=== PATIENT | male | born 1955 | race Caucasian/White ===

== ENCOUNTER 2023-10-03 15:37 | Emergency (ER) | payer MEDICARE, SELFPAY ==
[2023-10-03 15:46] VITALS: BP 102/79; PULSE 87; RESP 14; TEMP 36.8; O2SAT 95; BMI 26.6
--- NOTE | 2023-10-03 16:03 | CRLHL7_ITS ---
For Patients: As a result of the Cures Act, medical imaging exams and procedure reports are released immediately into your electronic medical record. You may view this report before your referring provider. If you have questions, please contact your health care provider. Indication: Laceration. Possible metal in hand. Technique: Three views of the left hand. Comparison: None. Findings: There is a 4 mm metallic foreign body in the palmar soft tissues of the thenar eminence where there is also soft tissue swelling. There is a linear 5 mm foreign body seen over the dorsal soft tissues near the heads of the metacarpals only on the lateral view which could be external to the patient. No evidence of acute fracture or dislocation. Degenerative changes at the MCP joint of the thumb and at the interphalangeal joints, most severe at the D IP joint of the index finger. Impression: There is a 4 mm metallic body in the palmar soft tissues of the thenar eminence. A linear 5 mm foreign body over the dorsal soft tissues of the hand may be external to the patient. Clinical correlation is recommended. Dictated by Kayce Malave MD @ 10/03/2023 4:56:25 PM (Electronically Signed)
--- OUTSIDE RECORDS SUMMARY | 2023-10-03 16:51 | XMS_ITS | Continuity of Care Document ---
Author Name [facility] Organization [facility] Care Team Providers Care Customer Sales Representative Name Role Phone [facility] Unavailable Unavailable Problems Combined list of problems from Department of Defense and Veterans Affairs facilities. It does not include entries that were removed or entered in error. Problem Status Onset Date Problem Type Date of Resolution Comments Source Benign prostatic hyperplasia Active Condition [facility] Bilateral hearing loss Active Condition [facility] Congestive heart failure Active Condition Feb 01, 2021 Entered By: NABIL DICKSON Comment: EF 35% 2016 --> 40-45% 04/2019, G1DD; BODY BUILDER was discussed by Dr. NashApr 2021 Entered By: NABIL DICKSON Comment: 45-50% 2021 scanned to vista imaging [facility] Erectile Dysfunction ([facility] [id number]) Active Condition [facility] GERD - Gastro-Esophageal Reflux Disease ([facility] [id number]) Active Condition [facility] HTN - Hypertension ([facility] [id number]) Active Condition [facility] Hyperlipidemia ([facility] [id number]) Active Condition [facility] Kidney stone Active Condition Apr 05, 2020 Entered By: NABIL DICKSON Comment: <2mm [facility] Knee pain Active Condition Apr 05 Entered By: NABIL DICKSON Comment: per prev notes - medial mensicus tear [facility] Left bundle branch block Active Condition Apr 05, 2020 Entered By: NABIL DICKSON Comment: CT A with calcium 0 [facility] Past History Active Condition Apr 05, 2020 Entered By: NABIL DICKSON Comment: Medical - HSV genital w occ flares; glaucomaApr 05, 2020 Entered By: NABIL DICKSON Comment: Social - smoker 1pk/wkNov 2020 Entered By: NABIL DICKSON Comment: Mom-breast cancer, father-prostat e cancer, brother - carcoidosis, son - dystonia, daughter albinoism [facility] Polyp Colon ([facility] [id number]) Active Condition Apr 05, 2020 Entered By: NABIL DICKSON Comment: TA 2016 multiple 3yr; 10/2019 2TA; rpt 5yr [facility] Restless legs Active Condition [facility] Sleep apnea Active Condition Jul 26, 2021 Entered By: NABIL DICKSON Comment: Completed TOD surgery; didn't tolerate cpap [facility] Spinal stenosis of lumbar region Active Condition [facility] Diagnosis: ICD-10-CM Z13.6 Encounter for screening for cardiovascular disorders Active Diagnosis [facility] Diagnosis: ICD-10-CM N40.0 Benign prostatic hyperplasia without lower urinry tract symp Active Diagnosis [facility] Diagnosis: ICD-10-CM Z13.9 Encounter for screening, unspecified Active Diagnosis [facility] Diagnosis: ICD-10-CM 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 Medication Details Route Status Patient Instructions Prescription Expires Prescription Number Last Dispense Date Ordering Provider Order Date Order Qty Source ACYCLOVIR 200MG CAP ACYCLOVI R 200MG CAP TAKE TWO CAPSULES BY MOUTH THREE TIMES A DAY Mar 29, 2022 30 Apr 01, 2023 [id number] Mar 20, 2023 NABIL DICKSON [facility] ORAL 04/01/2023 [id number] NABIL DICKSON 2022 30 [facility] CHOLECALCIF AMADEO TAB CHOLECAL CIFEROL TAB Non-VA TAKE BY MOUTH Aug 31, 2023 Non-VA Document ed by: NABIL DICKSON Document ed at: [facility] ORAL ACTIVE NABIL DICKSON 2023 [facility] [place] LIQUID,ORAL [place] LIQUID,O RAL Non-VA TAKE BY MOUTH Aug 31, 2023 Non-VA Document ed by: NABIL DICKSON Document ed at: [facility] ORAL ACTIVE NABIL DICKSON 2023 [facility] COCONUT OIL CAP/TAB COCONUT OIL CAP/TAB Non-VA TAKE Aug 31, 2023 Non-VA Document ed by: NABIL DICKSON Document ed at: [facility] ACTIVE NABIL DICKSON 2023 [facility] COENZYME Q10 CAP/TAB COENZYME Q10 CAP/TAB Non-VA TAKE BY MOUTH Aug 31, 2023 Non-VA Document ed by: NABIL DICKSON Document ed at: [facility] ORAL ACTIVE NABIL DICKSON 2023 [facility] CRANBERRY CAP/TAB CRANBERR Y CAP/TAB Non-VA TAKE Aug 31, 2023 Non-VA Document ed by: NABIL DICKSON Document ed at: [facility] ACTIVE NABIL DICKSON 2023 [facility] DICLOFENAC NA 1% GEL,TOP DICLOFEN AC NA 1% GEL,TOP Active APPLY 4 GRAMS TOPICALL Y FOUR TIMES A DAY NEEDED TO AFFECTED AREA FOR PAIN TO AFFECTED AREA FOR PAIN Aug 31, 2023 100 Aug 31, 2024 [id number] Sep 01, 2023 NABIL DICKSON [facility] HCS TOPICA L ACTIVE 08/31/2024 [id number] [place]I [place] 2023 100 [facility] DICLOFENAC NA 1% GEL,TOP DICLOFEN AC NA 1% GEL,TOP Disconti nued APPLY 4 GRAMS TOPICALL Y FOUR TIMES A DAY NEEDED TO AFFECTED AREA FOR PAIN TO AFFECTED AREA FOR PAIN August 07, 2022 100 August 08, 2023 [id number] August 07, 2022 YESSINABILGEOFF [place] [facility] TOPICA L DISCONT INUED 08/08/2023 [id number] YESSI NABILGEOFF [place] 2022 100 [facility] LATANOPROST 0.005% SOLN,OPH LATANOPR OST 0.005% SOLN,OPH INSTILL 1 DROP IN BOTH EYES AT BEDTIME Dec 12, 2021 7.5 Dec 13, 2022 [id number] C Oct 23, 2022 [facility] OPHTHA LMIC 12/13/2022 [id number] WILLOW WALTER 2021 7.5 [place] [facility] LIDOCAINE 5% OINT,TOP LIDOCAIN E 5% OINT,TOP Active APPLY MODERATE AMOUNT TOPICALL Y FOUR TIMES A DAY NEEDED FOR PAIN FOR PAIN Aug 31, 2023 35 Aug 31, 2024 [id number] Sep 01, 2023 NABIL DICKSONO [facility] HCS TOPICA L ACTIVE 08/31/2024 [id number] PARADNABIL ESPARZA 2023 35 [place] [facility] LIDOCAINE 5% PATCH LIDOCAIN E 5% PATCH Active APPLY 1 PATCH TOPICALL Y EVERY DAY NEEDED FOR PAIN FOR PAIN Aug 31, 2023 30 Aug 31, 2024 [id number] Sep 01, 20[facility] 08/31/2024 [id number] 30 [place] [facility] LIDOCAINE 5% PATCH LIDOCAIN E 5% PATCH Disconti nued APPLY 1 PATCH TOPICALL Y EVERY DAY NEEDED FOR PAIN FOR PAIN August 07, 2022 30 August 08, 2023 [id number] August 07, 2022 NABIL DICKSON [facility] HCS TOPICA L DISCONT INUED 08/08/2023 [id number] PARADNABIL ESPARZA 2022 30 [facility] LISINOPRIL 5MG TAB LISINOPR IL 5MG TAB Disconti nued TAKE ONE TABLET BY MOUTH EVERY DAY FOR BLOOD PRESSURE WHOLE TAB FOR BLOOD PRESSURE Jul 26, 2022 90 Jul 27, 2023 [id number] July 29, 2022 NABIL DICKSON [facility] ORAL DISCONT INUED 07/27/2023 [id number] NABIL DICKSON 2022 90 [place] [facility] LISINOPRIL 5MG TAB LISINOPR IL 5MG TAB TAKE ONE TABLET BY MOUTH EVERY DAY FOR BLOOD PRESSURE WHOLE TAB FOR BLOOD PRESSURE August 07, 2022 90 August 08, 2023 [id number] A Oct 17, 2022 [facility]O [facility] OR[facility] 08/08/2023 [id number] NABIL DICKSON 2022 90 [place] [facility] [facility] METOPROLOL SUCCINATE 25MG TAB,SA METOPROL OL SUCCINAT E 25MG TAB,SA Disconti nued TAKE ONE-HALF TABLET BY MOUTH EVERY DAY August 02, 2021 45 August 03, 2022 [id number] Jul 23, 2022 [facility] DISCONT INUED 08/03/2022 [id number] NABIL DICKSON 2021 45 [place] [facility] [facility] METOPROLOL SUCCINATE 25MG TAB,SA METOPROL OL SUCCINAT E 25MG TAB,SA TAKE ONE-HALF TABLET BY MOUTH EVERY DAY August 07, 2022 45 August 08, 2023 [id number] Feb 16, 2023 NABIL DICKSONO [facility] H[facility] ORAL 08/08/2023 [id number] NABIL DICKSON 2022 45 [facility] MULTIVITAMI NS CAP/TAB MULTIVIT AMINS CAP/TAB Non-VA TAKE BY MOUTH Aug 31, 2023 Non-VA Document ed by: YESSINABIL SERGIO Document ed at: [facility] ORAL ACTIVE JOSENABIL ESPARZA 2023 [place] [facility] ROPINIROLE HCL 1MG TAB ROPINIRO LE HCL 1MG TAB TAKE ONE TABLET BY MOUTH AT BEDTIME FOR RESTLESS LEGS SYNDROME FOR RESTLESS LEGS SYNDROME August 07, 2022 30 August 08, 2023 [id number] August 07, 2022 JOSENABIL ESPARZAO [facility] ORAL 08/08/2023 [id number] NABIL DICKSON 2022 30 [place] [facility] [facility] ROSUVASTATI N CA 5MG TAB ROSUVAST ATIN CA 5MG TAB TAKE ONE TABLET BY MOUTH EVERY DAY FOR CHOLESTE ROL FOR CHOLESTE ROL August 07, 2022 90 August 08, 2023 [id number] Oct 28, 2022 [facility]IL [facility]SONAPO [facility] ORAL 08/08/2023 [id number] NABIL DICKSON 2022 90 [place] [facility] [facility] TADALAFIL 20MG TAB TADALAFI L 20MG TAB Active TAKE ONE TABLET BY MOUTH AT BEDTIME NEEDED FOR ERECTILE DYSFUNCT ION FOR ERECTILE DYSFUNCT ION Aug 31, 2023 18 Aug 31, 2024 [id number] A Sep 01, 2023 [facility]SONAPO [facility] ORAL ACTIVE 08/31/2024 [id number] NABIL DICKSON 2023 18 [place] [facility] [facility] TADALAFIL 20MG TAB TADALAFI L 20MG TAB Disconti nued TAKE ONE TABLET BY MOUTH AT BEDTIME NEEDED FOR ERECTILE DYSFUNCT ION FOR ERECTILE DYSFUNCT ION August 07, 2022 18 August 08, 2023 [id number] Feb 16, 2023 [facility]SONAPO [facility] ORAL DISCONT INUED 08/08/2023 [id number] NABIL DICKSON 2022 18 [place] [facility] [facility] TAMSULOSIN HCL 0.4MG CAP TAMSULOS IN HCL 0.4MG CAP Active TAKE ONE CAPSULE BY MOUTH EVERY DAY Aug 31, 2023 90 Aug 31, 2024 [id number] Sep 01, 2023 [facility]AP[facility] ORAL ACTIVE 08/31/2024 [id number] NABIL DICKSON 2023 90 [place] [facility] TAMSULOSIN HCL 0.4MG CAP TAMSULOS IN HCL 0.4MG CAP Disconti nued TAKE ONE CAPSULE BY MOUTH EVERY DAY August 07, 2022 90 August 08, 2023 [id number] May 26, 2023 [facility] ORAL DISCONT INUED 08/08/2023 [id number] NABIL DICKSON 2022 90 [place] [facility] TAMSULOSIN HCL 0.4MG CAP TAMSULOS IN HCL 0.4MG CAP Disconti nued TAKE ONE CAPSULE BY MOUTH EVERY DAY August 02, 2021August 03, 2022 [id number] Jul 23, 2022 YESSINABILGEOFF [place] [facility] ORAL DISCONT INUED 08/03/2022 [id number] NABIL DICKSON 2021 90 [facility] VALACYCLOVI R HCL 1GM TAB VALACYCL OVIR HCL 1GM TAB Active TAKE ONE TABLET BY MOUTH TWICE A DAY FOR HSV FOR 10 DAYS FOR EACH FLARE REPEAT NEEDED FOR SUBSEQUE NT FLARES FOR HSV FOR 10 DAYS FOR EACH FLARE Sep 10, 2023 40 Sep 10, 2024 [id number] Sep 21, 2023 [place] [facility] ORAL ACTIVE 09/10/2024 [id number] YESSI NABILGEOFF HILL 2023 40 [facility] VITAMIN B COMPLEX CAP,ORAL VITAMIN B COMPLEX CAP,ORAL Non-VA TAKE BY MOUTH Aug 31, 2023 Non-VA Document ed by: NABIL DICKSON Document ed at: [facility] ORAL ACTIVE JOSEISAIAS NABIL HILL 2023 [facility] Allergies, Adverse Reactions, Alerts Combined list of allergies from Department of Defense and Veterans Affairs facilities. It does not include entries that were removed or entered in error. Substance Category Reaction Severity Reaction type Status Date Reported Comments Source AMOXICILLIN Propensity to adverse reactions to drug (finding) Finding of vomiting MODERATE active 1 [facility] GLUCOSAMINE Propensity to adverse reactions to drug (finding) Anaphylaxis MODERATE active 1 [facility] MORPHINE Propensity to adverse reactions to drug (finding) Finding of vomiting MODERATE active 1 [facility] SHELLFISH Propensity to adverse reactions to food (finding) Anaphylaxis MODERATE active 1 [facility] Immunizations Combined list of available immunizations from the Department of Defense and Veterans Affairs facilities. Immunization Series Date Given Administered By Site Reaction Lot Number CVX Code Drug Director Of Outside Sales Status Comments Source TDAP 2023 AFRICA SPAULDING LEFT DELTO ID [id number] complet ed [facility] INFLUENZA, INJECTABLE, QUADRIVALENT, PRESERVATIVE FREE 2017 150 complet ed [facility] INFLUENZA, SEASONAL, INJECTABLE 2012 141 complet ed [facility] INFLUENZA, SEASONAL, INJECTABLE, PRESERVATIVE FREE 2010 140 complet ed [facility] TDAP 2010 115 complet ed [facility] Results Combined list of recent chemistry, hematology and other laboratory results from Department of Defense and Veterans Affairs, ranging from 15 months to all on record, depending upon the facility. Order Name Results Value Reference Range Date Interpretation Specimen Comments Source CBC LEUKOCYTES [#/VOLUME] IN BLOOD BY AUTOMATED COUNT 6.18 10*3/u L 4.0 - 11.0 08/30 Specimen Type: BLOOD No comment entered. Ordering Provider: HOLLIS DICKSON Report Released Date/Time: August 22, 2022 11:41 PM Reporting Lab: [facility] [address] Performing Lab: [facility] [address] [facility] CBC ERYTHROCYTE S [#/VOLUME] IN BLOOD BY AUTOMATED COUNT 4.57 10*6/u L 4.6 - 6.2 08/30 L Specimen Type: BLOOD No comment entered. Ordering Provider: HOLLIS DICKSON Report Released Date/Time: August 22, 2022 11:41 PM Reporting Lab: [facility] [phone] Performing Lab: [facility] [phone] [facility] IS [facility] CBC HEMOGLOBIN [MASS/VOLUM E] IN BLOOD 15.2 g/dL 13.5 - 17.9 08/30 Specimen Type: BLOOD No comment entered. Ordering Provider: HOLLIS DICKSON Report Released Date/Time: August 22, 2022 11:41 PM Reporting Lab: [facility] [address] Performing Lab: [facility] [address] [facility] CBC HEMATOCRIT [VOLUME FRACTION] OF BLOOD BY AUTOMATED COUNT 43.3 41 - 54 08/30 Specimen Type: BLOOD No comment entered. Ordering Provider: HOLLIS DICKSON Report Released Date/Time: August 22, 2022 11:41 PM Reporting Lab: [facility] [address] Performing Lab: [facility] [address] [place] [facility] CBC MCV [ENTITIC VOLUME] BY AUTOMATED COUNT 94.7 fL 80 - 100 08/30 Specimen Type: BLOOD No comment entered. Ordering Provider: HOLLIS DICKSON Report Released Date/Time: August 22, 2022 11:41 PM Reporting Lab: [facility] [address] Performing Lab: [facility] [address] [place] [facility] CBC MCH [ENTITIC MASS] BY AUTOMATED COUNT 33.3 pg 27 - 33 08/30 H Specimen Type: BLOOD No comment entered. Ordering Provider: HOLLIS DICKSON Report Released Date/Time: August 22, 2022 11:41 PM Reporting Lab: [facility] [address] Performing Lab: [facility] [address] [place] [facility] CBC MCHC [MASS/VOLUM E] BY AUTOMATED COUNT 35.1 g/dL 32.0 - 37.5 08/30 Specimen Type: BLOOD No comment entered. Ordering Provider: HOLLIS DICKSON Report Released Date/Time: August 22, 2022 11:41 PM Reporting Lab: [facility] [address] Performing Lab: [facility] [address] [place] [facility] CBC PLATELETS [#/VOLUME] IN BLOOD BY AUTOMATED COUNT 232 10*3/u L 150 - 400 08/30 Specimen Type: BLOOD No comment entered. Ordering Provider: HOLLIS DICKSON Report Released Date/Time: August 22, 2022 11:41 PM Reporting Lab: [facility] [address] Performing Lab: [facility] [address] [place] [facility] CBC PLATELET MEAN VOLUME [ENTITIC VOLUME] IN BLOOD BY AUTOMATED COUNT 10.3 fL 7.4 - 10.4 08/30 Specimen Type: BLOOD No comment entered. Ordering Provider: HOLLIS DICKSON Report Released Date/Time: August 22, 2022 11:41 PM Reporting Lab: [facility] [phone] Performing Lab: [facility] [address] [place] [facility] CBC ERYTHROCYTE DISTRIBUTIO N WIDTH [RATIO] BY AUTOMATED COUNT 12.7 11.5 - 14.5 08/30 Specimen Type: BLOOD No comment entered. Ordering Provider: HOLLIS DICKSON Report Released Date/Time: August 22, 2022 11:41 PM Reporting Lab: [facility] [address] Performing Lab: [facility] [address] [place] [facility] BASIC METABOLIC PANEL+MG CREATININE [MASS/VOLUM E] IN SERUM OR PLASMA 1.0 mg/dL 0.7 - 1.2 08/30 Specimen Type: PLASMA No comment entered. Ordering Provider: HOLLIS DICKSON Report Released Date/Time: August 22, 2022 11:41 PM Reporting Lab: [facility] [address] Performing Lab: [facility] [address] [place] [facility] BASIC METABOLIC PANEL+MG UREA NITROGEN [MASS/VOLUM E] IN SERUM OR PLASMA 15 mg/dL 8 - 08/30 Specimen Type: PLASMA No comment entered. Ordering Provider: HOLLIS DICKSON Report Released Date/Time: August 22, 2022 11:41 PM Reporting Lab: [facility] [address] Performing Lab: [facility] [address] [place] [facility] BASIC METABOLIC PANEL+MG GLUCOSE [MASS/VOLUM E] IN SERUM OR PLASMA 104 mg/dL 70 - 100 08/30 H Specimen Type: PLASMA No comment entered. Ordering Provider: HOLLIS DICKSON Report Released Date/Time: August 22, 2022 11:41 PM Reporting Lab: [facility] [address] Performing Lab: [facility] [address] [place] [facility] BASIC METABOLIC PANEL+MG SODIUM [MOLES/VOLU ME] IN SERUM OR PLASMA 140 mmol/L 136 - 145 08/30 Specimen Type: PLASMA No comment entered. Ordering Provider: HOLLIS DICKSON Report Released Date/Time: August 22, 2022 11:41 PM Reporting Lab: [facility] [address] Performing Lab: [facility] [address] [place] [facility] BASIC METABOLIC PANEL+MG POTASSIUM [MOLES/VOLU ME] IN SERUM OR PLASMA 3.9 mmol/L 3.5 - 5.1 08/30 Specimen Type: PLASMA No comment entered. Ordering Provider: HOLLIS DICKSON Report Released Date/Time: August 22, 2022 11:41 PM Reporting Lab: [facility] [address] Performing Lab: [facility] [address] [place] [facility] BASIC METABOLIC PANEL+MG CHLORIDE [MOLES/VOLU ME] IN SERUM OR PLASMA 107 mmol/L 98 - 107 08/30 Specimen Type: PLASMA No comment entered. Ordering Provider: HOLLIS DICKSON Report Released Date/Time: August 22, 2022 11:41 PM Reporting Lab: [facility] [phone] Performing Lab: [facility] [address] [place] [facility] BASIC METABOLIC PANEL+MG CARBON DIOXIDE, TOTAL [MOLES/VOLU ME] IN SERUM OR PLASMA 26 mmol/L 22 - 29 08/30 Specimen Type: PLASMA No comment entered. Ordering Provider: HOLLIS DICKSON Report Released Date/Time: August 22, 2022 11:41 PM Reporting Lab: [facility] [address] Performing Lab: [facility] [address] [place] [facility] BASIC METABOLIC PANEL+MG CALCIUM [MASS/VOLUM E] IN SERUM OR PLASMA 9.0 mg/dL 8.4 - 10.2 08/30 Specimen Type: PLASMA No comment entered. Ordering Provider: HOLLIS DICKSON Report Released Date/Time: August 22, 2022 11:41 PM Reporting Lab: [facility] [address] Performing Lab: [facility] [address] [place] [facility] BASIC METABOLIC PANEL+MG MAGNESIUM [MASS/VOLUM E] IN SERUM OR PLASMA 2.1 mg/dL 1.6 - 2.6 08/30 Specimen Type: PLASMA No comment entered. Ordering Provider: HOLLIS DICKSON Report Released Date/Time: August 22, 2022 11:41 PM Reporting Lab: [facility] [phone] Performing Lab: [facility] [address] [place] [facility] BASIC METABOLIC PANEL+MG ANION GAP IN SERUM OR PLASMA 7 mmol/L 5 - 15 08/30 Specimen Type: PLASMA No comment entered. Ordering Provider: HOLLIS DICKSON Report Released Date/Time: August 22, 2022 11:41 PM Reporting Lab: [facility] [address] Performing Lab: [facility] [address] [place] [facility] BASIC METABOLIC PANEL+MG GLOMERULAR FILTRATION RATE/1.73 SQ M.PREDICTED [VOLUME RATE/AREA] IN SERUM, PLASMA OR BLOOD BY CREATININE- BASED FORMULA (CKD-EPI 2020) 81 60 08/30 Specimen Type: PLASMA No comment entered. Ordering Provider: HOLLIS DICKSON Report Released Date/Time: August 22, 2022 11:41 PM Reporting Lab: [facility] [address] Performing Lab: [facility] [address] [place] [facility] AST/SGOT ASPARTATE AMINOTRANSF ERASE [ENZYMATIC ACTIVITY/VO LUME] IN SERUM OR PLASMA 18 U/L <34 - 34 08/30 Specimen Type: PLASMA No comment entered. Ordering Provider: HOLLIS DICKSON Report Released Date/Time: August 22, 2022 11:41 PM Reporting Lab: [facility] [address] Performing Lab: [facility] [address] [place] [facility] ALT/SGPT ALANINE AMINOTRANSF ERASE [ENZYMATIC ACTIVITY/VO LUME] IN SERUM OR PLASMA 25 U/L <55 - 55 08/30 Specimen Type: PLASMA No comment entered. Ordering Provider: HOLLIS DICKSON Report Released Date/Time: August 22, 2022 11:41 PM Reporting Lab: [facility] [phone] Performing Lab: [facility] [address] [place] [facility] LIPID PANEL,NON -FASTING CHOLESTEROL [MASS/VOLUM E] IN SERUM OR PLASMA 166 mg/dL <199 - 199 08/30 Specimen Type: PLASMA No comment entered. Ordering Provider: HOLLIS DICKSON Report Released Date/Time: August 22, 2022 11:41 PM Reporting Lab: [facility] [address] Performing Lab: [facility] [address] [place] [facility] LIPID PANEL,NON -FASTING CHOLESTEROL IN HDL [MASS/VOLUM E] IN SERUM OR PLASMA 49 mg/dL 40 08/30 Specimen Type: PLASMA No comment entered. Ordering Provider: HOLLIS DICKSON Report Released Date/Time: August 22, 2022 11:41 PM Reporting Lab: [facility] [address] Performing Lab: [facility] [address] [place] [facility] LIPID PANEL,NON -FASTING CHOLESTEROL IN LDL [MASS/VOLUM E] IN SERUM OR PLASMA BY CALCULATION 97 mg/dL <99 - 99 08/30 Specimen Type: PLASMA No comment entered. Ordering Provider: HOLLIS DICKSON Report Released Date/Time: August 22, 2022 11:41 PM Reporting Lab: [facility] [address] Performing Lab: [facility] [address] [place] [facility] LIPID PANEL,NON -FASTING CHOLESTEROL IN VLDL [MASS/VOLUM E] IN SERUM OR PLASMA BY CALCULATION 20 mg/dL <29 - 29 08/30 Specimen Type: PLASMA No comment entered. Ordering Provider: HOLLIS DICKSON Report Released Date/Time: August 22, 2022 11:41 PM Reporting Lab: [facility] [address] Performing Lab: [facility] [address] [place] [facility] LIPID PANEL,NON -FASTING CHOLESTEROL NON HDL [MASS/VOLUM E] IN SERUM OR PLASMA 117 mg/dL <129 - 129 08/30 Specimen Type: PLASMA No comment entered. Ordering Provider: HOLLIS DICKSON Report Released Date/Time: August 22, 2022 11:41 PM Reporting Lab: [facility] [address] Performing Lab: [facility] [address] [place] [facility] LIPID PANEL,NON -FASTING TRIGLYCERID E [MASS/VOLUM E] IN SERUM OR PLASMA 100 mg/dL <149 - 149 08/30 Specimen Type: PLASMA No comment entered. Ordering Provider: HOLLIS DICKSON Report Released Date/Time: August 22, 2022 11:41 PM Reporting Lab: [facility] [address] Performing Lab: [facility] [address] [place] [facility] COMPREHEN SIVE METABOLIC PANEL+MG CREATININE [MASS/VOLUM E] IN SERUM OR PLASMA 0.9 mg/dL 0.7 - 1.2 08/07 Specimen Type: PLASMA No comment entered. Ordering Provider: HOLLIS DICKSON Report Released Date/Time: Jul 26, 2021 12:20 PM Reporting Lab: [facility] [address] Performing Lab: [facility] [address] [place] [facility] COMPREHEN SIVE METABOLIC PANEL+MG UREA NITROGEN [MASS/VOLUM E] IN SERUM OR PLASMA 18 mg/dL 8 - 26 08/07 Specimen Type: PLASMA No comment entered. Ordering Provider: HOLLIS DICKSON Report Released Date/Time: Jul 26, 2021 12:20 PM Reporting Lab: [facility] [id number] Performing Lab: [facility] [id number] [place] [facility] COMPREHEN SIVE METABOLIC PANEL+MG GLUCOSE [MASS/VOLUM E] IN SERUM OR PLASMA 80 mg/dL 70 - 100 08/07 Specimen Type: PLASMA No comment entered. Ordering Provider: HOLLIS DICKSON Report Released Date/Time: Jul 26, 2021 12:20 PM Reporting Lab: [facility] [id number] Performing Lab: [facility] [id number] [place] [facility] COMPREHEN SIVE METABOLIC PANEL+MG SODIUM [MOLES/VOLU ME] IN SERUM OR PLASMA 140 mmol/L 136 - 145 08/07 Specimen Type: PLASMA No comment entered. Ordering Provider: HOLLIS DICKSON Report Released Date/Time: Jul 26, 2021 12:20 PM Reporting Lab: [facility] [phone] Performing Lab: [facility] [address] [place] [facility] COMPREHEN SIVE METABOLIC PANEL+MG POTASSIUM [MOLES/VOLU ME] IN SERUM OR PLASMA 4.0 mmol/L 3.5 - 5.1 08/07 Specimen Type: PLASMA No comment entered. Ordering Provider: HOLLIS DICKSON Report Released Date/Time: Jul 26, 2021 12:20 PM Reporting Lab: [facility] [address] Performing Lab: [facility] [address] [place] [facility] COMPREHEN SIVE METABOLIC PANEL+MG CHLORIDE [MOLES/VOLU ME] IN SERUM OR PLASMA 107 mmol/L 98 - 107 08/07 Specimen Type: PLASMA No comment entered. Ordering Provider: HOLLIS DICKSON Report Released Date/Time: Jul 26, 2021 12:20 PM Reporting Lab: [facility] [address] Performing Lab: [facility] [address] [place] [facility] COMPREHEN SIVE METABOLIC PANEL+MG CARBON DIOXIDE, TOTAL [MOLES/VOLU ME] IN SERUM OR PLASMA 26 mmol/L 22 - 29 08/07 Specimen Type: PLASMA No comment entered. Ordering Provider: HOLLIS DICKSON Report Released Date/Time: Jul 26, 2021 12:20 PM Reporting Lab: [facility] [address] Performing Lab: [facility] [address] [place] [facility] COMPREHEN SIVE METABOLIC PANEL+MG CALCIUM [MASS/VOLUM E] IN SERUM OR PLASMA 8.9 mg/dL 8.4 - 10.2 08/07 Specimen Type: PLASMA No comment entered. Ordering Provider: HOLLIS DICKSON Report Released Date/Time: Jul 26, 2021 12:20 PM Reporting Lab: [facility] [address] Performing Lab: [facility] [address] [place] [facility] COMPREHEN SIVE METABOLIC PANEL+MG PROTEIN [MASS/VOLUM E] IN SERUM OR PLASMA 6.4 g/dL 6.0 - 8.3 08/07 Specimen Type: PLASMA No comment entered. Ordering Provider: HOLLIS DICKSON Report Released Date/Time: Jul 26, 2021 12:20 PM Reporting Lab: [facility] [address] Performing Lab: [facility] [address] [place] [facility] COMPREHEN SIVE METABOLIC PANEL+MG ALBUMIN [MASS/VOLUM E] IN SERUM OR PLASMA 4.0 g/dL 3.5 - 5.2 08/07 Specimen Type: PLASMA No comment entered. Ordering Provider: HOLLIS DICKSON Report Released Date/Time: Jul 26, 2021 12:20 PM Reporting Lab: [facility] [phone] Performing Lab: [facility] [address] [place] [facility] COMPREHEN SIVE METABOLIC PANEL+MG BILIRUBIN.T OTAL [MASS/VOLUM E] IN SERUM OR PLASMA 0.9 mg/dL 0.2 - 1.2 08/07 Specimen Type: PLASMA No comment entered. Ordering Provider: HOLLIS DICKSON Report Released Date/Time: Jul 26, 2021 12:20 PM Reporting Lab: [facility] [address] Performing Lab: [facility] [address] [place] [facility] COMPREHEN SIVE METABOLIC PANEL+MG MAGNESIUM [MASS/VOLUM E] IN SERUM OR PLASMA 2.1 mg/dL 1.6 - 2.6 08/07 Specimen Type: PLASMA No comment entered. Ordering Provider: HOLLIS DICKSON Report Released Date/Time: Jul 26, 2021 12:20 PM Reporting Lab: [facility] [address] Performing Lab: [facility] [address] [place] [facility] COMPREHEN SIVE METABOLIC PANEL+MG ANION GAP IN SERUM OR PLASMA 7 mmol/L 5 - 15 08/07 Specimen Type: PLASMA No comment entered. Ordering Provider: HOLLIS DICKSON Report Released Date/Time: Jul 26, 2021 12:20 PM Reporting Lab: [facility] [address] Performing Lab: [facility] [address] [place] [facility] COMPREHEN SIVE METABOLIC PANEL+MG ALKALINE PHOSPHATASE [ENZYMATIC ACTIVITY/VO LUME] IN SERUM OR PLASMA 46 U/L 40 - 150 08/07 Specimen Type: PLASMA No comment entered. Ordering Provider: HOLLIS DICKSON Report Released Date/Time: Jul 26, 2021 12:20 PM Reporting Lab: [facility] [address] Performing Lab: [facility] [address] [place] [facility] COMPREHEN SIVE METABOLIC PANEL+MG ALANINE AMINOTRANSF ERASE [ENZYMATIC ACTIVITY/VO LUME] IN SERUM OR PLASMA 29 U/L <55 - 55 08/07 Specimen Type: PLASMA No comment entered. Ordering Provider: HOLLIS DICKSON Report Released Date/Time: Jul 26, 2021 12:20 PM Reporting Lab: [facility] [phone] Performing Lab: [facility] [address] [place] [facility] COMPREHEN SIVE METABOLIC PANEL+MG ASPARTATE AMINOTRANSF ERASE [ENZYMATIC ACTIVITY/VO LUME] IN SERUM OR PLASMA 27 U/L <34 - 34 08/07 Specimen Type: PLASMA No comment entered. Ordering Provider: HOLLIS DICKSON Report Released Date/Time: Jul 26, 2021 12:20 PM Reporting Lab: [facility] [address] Performing Lab: [facility] [address] [place] [facility] COMPRE[facility]EN SIVE METABOLIC PANEL+MG GLOMERULAR FILTRATION RATE/1.73 SQ M.PREDICTED [VOLUME RATE/AREA] IN SERUM, PLASMA OR BLOOD BY CREATININE- BASED FORMULA (CKD-EPI) >90 60 08/07 Specimen Type: PLASMA No comment entered. Ordering Provider: HOLLIS DICKSON Report Released Date/Time: Jul 26, 2021 12:20 PM Reporting Lab: [facility] [address] Performing Lab: [facility] [address] [facility] CBC LEUKOCYTES [#/VOLUME] IN BLOOD BY AUTOMATED COUNT 6.31 10*3/u L 4.0 - 11.0 08/07 Specimen Type: BLOOD No comment entered. Ordering Provider: HOLLIS DICKSON Report Released Date/Time: Jul 26, 2021 12:20 PM Reporting Lab: [facility] [address] Performing Lab: [facility] [address] [place] [facility] CBC ERYTHROCYTE S [#/VOLUME] IN BLOOD BY AUTOMATED COUNT 4.44 10*6/u L 4.6 - 6.2 08/07 L Specimen Type: BLOOD No comment entered. Ordering Provider: HOLLIS DICKSON Report Released Date/Time: Jul 26, 2021 12:20 PM Reporting Lab: [facility] [address] Performing Lab: [facility] [address] [place] [facility] CBC HEMOGLOBIN [MASS/VOLUM E] IN BLOOD 14.6 g/dL 13.5 - 17.9 08/07 Specimen Type: BLOOD No comment entered. Ordering Provider: HOLLIS DICKSON Report Released Date/Time: Jul 26, 2021 12:20 PM Reporting Lab: [facility] [address] Performing Lab: [facility] [address] [place] [facility] CBC HEMATOCRIT [VOLUME FRACTION] OF BLOOD BY AUTOMATED COUNT 41.5 41 - 54 08/07 Specimen Type: BLOOD No comment entered. Ordering Provider: HOLLIS DICKSON Report Released Date/Time: Jul 26, 2021 12:20 PM Reporting Lab: [facility] [address] Performing Lab: [facility] [address] [place] [facility] CBC MCV [ENTITIC VOLUME] BY AUTOMATED COUNT 93.5 fL 80 - 100 08/07 Specimen Type: BLOOD No comment entered. Ordering Provider: HOLLIS DICKSON Report Released Date/Time: Jul 26, 2021 12:20 PM Reporting Lab: [facility] [address] Performing Lab: [facility] [address] [place] [facility] CBC MCH [ENTITIC MASS] BY AUTOMATED COUNT 32.9 pg 27 - 33 08/07 Specimen Type: BLOOD No comment entered. Ordering Provider: HOLLIS DICKSON Report Released Date/Time: Jul 26, 2021 12:20 PM Reporting Lab: [facility] [address] Performing Lab: [facility] [address] [place] [facility] CBC MCHC [MASS/VOLUM E] BY AUTOMATED COUNT 35.2 g/dL 32.0 - 37.5 08/07 Specimen Type: BLOOD No comment entered. Ordering Provider: HOLLIS DICKSON Report Released Date/Time: Jul 26, 2021 12:20 PM Reporting Lab: [facility] [address] Performing Lab: [facility] [address] [place] [facility] CBC PLATELETS [#/VOLUME] IN BLOOD BY AUTOMATED COUNT 232 10*3/u L 150 - 400 08/07 Specimen Type: BLOOD No comment entered. Ordering Provider: HOLLIS DICKSON Report Released Date/Time: Jul 26, 2021 12:20 PM Reporting Lab: [facility] [address] Performing Lab: [facility] [address] [place] [facility] CBC PLATELET MEAN VOLUME [ENTITIC VOLUME] IN BLOOD BY AUTOMATED COUNT 10.2 fL 7.4 - 10.4 08/07 Specimen Type: BLOOD No comment entered. Ordering Provider: HOLLIS DICKSON Report Released Date/Time: Jul 26, 2021 12:20 PM Reporting Lab: [facility] [address] Performing Lab: [facility] [address] [place] [facility] CBC ERYTHROCYTE DISTRIBUTIO N WIDTH [RATIO] BY AUTOMATED COUNT 12.4 11.5 - 14.5 08/07 Specimen Type: BLOOD No comment entered. Ordering Provider: HOLLIS DICKSON Report Released Date/Time: Jul 26, 2021 12:20 PM Reporting Lab: [facility] [address] Performing Lab: [facility] [address] [place] [facility] LIPID PANEL,NON -FASTING CHOLESTEROL [MASS/VOLUM E] IN SERUM OR PLASMA 147 mg/dL <199 - 199 08/07 Specimen Type: PLASMA No comment entered. Ordering Provider: HOLLIS DICKSON Report Released Date/Time: Jul 26, 2021 12:20 PM Reporting Lab: [facility] [address] Performing Lab: [facility] [address] [place] [facility] LIPID PANEL,NON -FASTING CHOLESTEROL IN HDL [MASS/VOLUM E] IN SERUM OR PLASMA 47 mg/dL 40 08/07 Specimen Type: PLASMA No comment entered. Ordering Provider: HOLLIS DICKSON Report Released Date/Time: Jul 26, 2021 12:20 PM Reporting Lab: [facility] [address] Performing Lab: [facility] [address] [place] [facility] LIPID PANEL,NON -FASTING CHOLESTEROL IN LDL [MASS/VOLUM E] IN SERUM OR PLASMA BY CALCULATION 86 mg/dL <99 - 99 08/07 Specimen Type: PLASMA No comment entered. Ordering Provider: HOLLIS DICKSON Report Released Date/Time: Jul 26, 2021 12:20 PM Reporting Lab: [facility] [address] Performing Lab: [facility] [address] [place] [facility] LIPID PANEL,NON -FASTING CHOLESTEROL IN VLDL [MASS/VOLUM E] IN SERUM OR PLASMA BY CALCULATION 14 mg/dL <29 - 29 08/07 Specimen Type: PLASMA No comment entered. Ordering Provider: HOLLIS DICKSON Report Released Date/Time: Jul 26, 2021 12:20 PM Reporting Lab: [facility] [address] Performing Lab: [facility] [address] [place] [facility] LIPID PANEL,NON -FASTING CHOLESTEROL NON HDL [MASS/VOLUM E] IN SERUM OR PLASMA 100 mg/dL <129 - 129 08/07 Specimen Type: PLASMA No comment entered. Ordering Provider: HOLLIS DICKSON Report Released Date/Time: Jul 26, 2021 12:20 PM Reporting Lab: [facility] [address] Performing Lab: [facility] [address] [place] [facility] LIPID PANEL,NON -FASTING TRIGLYCERID E [MASS/VOLUM E] IN SERUM OR PLASMA 69 mg/dL <149 - 149 08/07 Specimen Type: PLASMA No comment entered. Ordering Provider: HOLLIS DICKSON Report Released Date/Time: Jul 26, 2021 12:20 PM Reporting Lab: [facility] [address] Performing Lab: [facility] [address] [facility] PSA PROSTATE SPECIFIC AG [MASS/VOLUM E] IN SERUM OR PLASMA 0.91 ng/mL <4.00 - 4.00 08/07 Specimen Type: SERUM No comment entered. Ordering Provider: HOLLIS DICKSON Report Released Date/Time: Jul 26, 2021 12:20 PM Reporting Lab: [facility] [address] Performing Lab: [facility] [address] [facility] Vital Signs Combined list of inpatient and outpatient Vital Signs from Department of Defense and Veterans Affairs, ranging from 12 months to all on record, depending upon the facility. Vital Sign Value Date Comments Source Encounters Combined list of: 1) Encounters from Department of Veterans Affairs facilities going back up to thelast 18 months. 2) Encounters from the Department of Defense facilities going back up to 280 months. Location Location Details Encounter Type Encounter Number Reason For Visit Attending Provider ADM Date DC Date Status Disposition Source [facility] PSYCL TST EVAL PHYS/QHP 1ST [id number] Diagnos is: ICD-10- CM Z13.9 Encount er for screeni ng, unspeci fied
LIZ DUNBAR 06/30 [facility] Outpatient Encounter [id number] TIAN VALDOVINOS 07/01 [facility] OFFICE O/P EST HI 40-54 MIN [id number] Diagnos is: ICD-10- CM E78.5 Hyperli pidemia , unspeci fied
Alicia DICKSON 08/07 [facility] IS [facility] UNLISTED SPEC DERM SVC/PX [id number] Diagnos is: ICD-10- CM D48.5 Neoplas m of uncerta in behavio r of skin
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
Davon ANDRES 08/08 [facility] Outpatient Encounter [id number] 01/21 [facility] Outpatient Encounter [id number] PINKYSANDRA SA Tracy 01/22 [facility] PSYTX W PT 30 MINUTES [id number] Diagnos is: ICD-10- CM Z13.9 Encount er for screeni ng, unspeci fied
LIZ DUNBAR 06/29 [facility] Outpatient Encounter [id number] 08/30 [facility] IS [facility] OFFICE O/P EST HI 40 MIN [id number] Diagnos is: ICD-10- CM N40.0 Benign prostat ic hyperpl dodie without lower urinry tract symp
Alicia DICKSON 08/30 [facility] ELECTROCAR DIOGRAM REPORT [id number] Diagnos is: ICD-10- CM Z13.6 Encount er for screeni ng for cardiov ascular disorde rs
NIYA FONG 08/30 [facility] Outpatient Encounter [id number] SERENA MATTHEWS 09/09 [facility] Outpatient Encounter [id number] TONE OWENS 09/15 [facility] Social History Combined list of available smoking, tobacco, and other social history from Department of Defense and Veterans Affairs facilities. Social History Type Response Date Comment Sourc e [facility] History of tobacco use [facility] [place] 30 MIN OF [place]KEUP 08/31/2023 [facility] History of tobacco use [facility] FORMER USER 08/07/2022 [facility] History of tobacco use [facility]CO FORMER USER 07/26/2021 [facility] History of tobacco use [facility]-TOBACCO DOESNT USE [place] 30 MIN WAKEUP 04/05/2020 [facility] Plan of Care List of future care activities from Department of Veterans Affairs facilities. Additional future care activities may be listed in the Assessment and Plan section. Date/Time Care Activity Care Activity Detail Facili ty 10/14/2023 AMBULATORY - SURGERY AMBULATORY - SURGERY [facility] 10/21/2023 AMBULATORY - SURGERY AMBULATORY - SURGERY [facility] 08/31/2023 Consult Order ORTHOPEDICS OUTP T-HIP/KNEE Cons [employer] Boiler Operator's Choice [facility]
--- OUTSIDE RECORDS SUMMARY | 2023-10-03 16:51 | XMS_ITS | Encounter Summary ---
Author Name [facility] [place] Address [address] [place] [id number] Care Team Providers Care Proofer Prepress Name Role Phone NABIL DICKSON Primary Care Provider Unavailabl e Insurance Providers: All historical and current Section Date Range: From patient's date of to the date document was created. This section includes the names of all active insurance providers for the patient. Insurance Provider Type of Coverage Plan Name Start of Policy Coverage End of Policy Coverage Group Number Member ID Insurance Provider's Telephone Number Policy Giraldo's Name Patient's Relationship to Policy Giraldo AARP MEDICARE SUPPLEMEN TERRY MEDIC ARE SUPPL EMENT Oct 29, 2019 PLAN [id number] [phone] RAEGAN CONTE PATIENT MEDICA [facility] (WNR) MEDICARE ADVANTAGE [facility] (WNR) Mar 30, 2021 [id number] RAEGAN CONTE PATIENT MEDICARE (WNR) MEDICARE (M) PART B Oct 29, 2019 PART B [id number] [phone] RAEGAN CONTE PATIENT MEDICARE (WNR) MEDICARE (M) PART A Mar 30, 2019 PART A [id number] [phone] RAEGAN CONTE PATIENT Selected Encounter This section includes the information on record at [place] for the Encounter. Date/Time Encounter Type Encounter Description Reason Pro vider Source Aug 31, 2023 10:04 AM Outpatient Encounter PRIMARY CARE/MEDICINE IHE Encounter Template Text not used by [place] Plan of Treatment: Future Appointments (+ 6 months) and Future Tests (+/- 45 days) The Plan of Treatment section includes future care activities for the patient [facility] [place] [facility] This section includes future appointments and future orders which are active, pending or scheduled. Future Appointments This section includes appointments that were scheduled to occur 6 months from the date of the Encounter, up to a maximum of 20 appointments. The data comes from all [facility]. Appointment Date/Time Appointment Type Appointme nt Facility Name Oct 14, 2023 02:15 PM AMBULATORY - SURGERY [facility] Oct 21, 2023 09:15 AM AMBULATORY - SURGERY [facility] Active, Pending, and Scheduled Orders This section includes a listing of several types of active, pending, and scheduled orders, including clinic medications orders, diagnostic test orders, procedure orders and consult orders; where the start date of the order is 45 days before the date of the Encounter or 45 days after the date of theEncounter. The data comes from all [facility]. Test Date/Time Test Type Test Details Facility Name Aug 31, 2023 05:28 PM Consult Order ORTHOPEDIC S OUTPT-HIP/KNEE Cons Relay Man's Choice [facility] Lab Results: +/- 30 days of the encounter This section includes the Chemistry and Hematology Lab Results on record with [place] for the patient. Radiology Reports and Pathology Reports are provided separately, in subsequent sections. Lab Results This section contains the Chemistry/Hematology Results that were resulted 30 days before or 30 daysafter the date of the Encounter. Date/Time Source Result Type Result - Unit Interpretation Reference Range Comment Aug 31, 2023 09:32 AM [facility] CBC Specimen Type: BLOOD No comment entered. Ordering Provider: ISIDRO DICKSON Report Released Date/Time: August 22, 2022 11:41 PM Reporting Lab: [facility] [id number] Performing Lab: [facility] [id number] WBC 6.18 10*3/uL 4.0-11.0 RBC 4.57 10*6/uL L 4.6-6.2 HGB 15.2 g/dL 13.5-17.9 HCT 43.3 41-54 MCV 94.7 fL 80-100 MCH 33.3 pg H 27-33 MCHC 35.1 g/dL 32.0-37.5 PLT 232 10*3/uL 150-400 MPV 10.3 fL 7.4-10.4 RDW 12.7 11.5-14.5 Aug 31, 2023 09:32 AM [facility] BASIC METABOLIC PANEL+MG Specimen Type: PLASMA No comment entered. Ordering Provider: ISIDRO DICKSON Report Released Date/Time: August 22, 2022 11:41 PM Reporting Lab: [facility] [id number] Performing Lab: [facility] [id number] CREATININE 1.0 mg/dL 0.7-1.2 UREA NITROGEN 15 mg/dL 8-26 GLUCOSE 104 mg/dL H 70-100 SODIUM 140 mmol/L 136-145 POTASSIUM 3.9 mmol/L 3.5-5.1 CHLORIDE 107 mmol/L 98-107 CO2 26 mmol/L 22-29 CALCIUM 9.0 mg/dL 8.4-10.2 MAGNESIUM 2.1 mg/dL 1.6-2.6 ANION GAP 7 mmol/L 5-15 .CREAT EGFR(CKD-EPI) 81 >60 Aug 31, 2023 09:32 AM [facility] AST/SGOT Specimen Type: PLASMA No comment entered. Ordering Provider: ISIDRO DICKSON Report Released Date/Time: August 22, 2022 11:41 PM Reporting Lab: [facility] [id number] Performing Lab: [facility] [phone] AST/SGOT 18 U/L <34 Aug 31, 2023 09:32 AM [facility] ALT/SGPT Specimen Type: PLASMA No comment entered. Ordering Provider: ISIDRO DICKSON Report Released Date/Time: August 22, 2022 11:41 PM Reporting Lab: [facility] [phone] Performing Lab: [facility] [id number] ALT/SGPT 25 U/L <55 Aug 31, 2023 09:32 AM [facility] LIPID PANEL,NON-FASTING Specimen Type: PLASMA No comment entered. Ordering Provider: ISIDRO DICKSON Report Released Date/Time: August 22, 2022 11:41 PM Reporting Lab: [facility] [phone] Performing Lab: [facility] [phone] CHOLESTEROL 166 mg/dL <199 .HDL 49 mg/dL >40 LDL CALCULATION 97 mg/dL <99 VLDL CALCULATION 20 mg/dL <29 NON HDL CHOLESTEROL 117 mg/dL <129 TRIG(NON FASTING) 100 mg/dL <149 Vital Signs: All taken on the encounter date This section contains inpatient and outpatient Vital Signs collected on the date of the Encounter. Date/Time Temperature Pulse Blood Pressure Respiratory Rate SP02 Pain Height Weight Body Mass Index Source Aug 31, 2023 10:35 AM 98.3 64 123/80 16 97 3 69 185.2 27 [facility] Social History: Smoking Status (Most current) and Tobacco Use (All prior to encounter date) This section includes the most current, and the historical, smoking and tobacco- related health factors from the [place] facility where the Encounter took place. Current Smoking Status This section includes the most current smoking, or tobacco-related health factor, from the [place] facility where the Encounter took place. Date/Time Current Smoking Status Comment Facil ity Aug 31, 2023 10:30 AM [place]-TOBACCO USER EVERY DAY [facility] Tobacco Use History This section includes a history of the smoking, or tobacco-related health factors, that were collected on or before the date of the Encounter. The data comes from the [place] facility where the Encounter took place. Date/Time Smoking Status/Tobacco Use Comment F acility Aug 31, 2023 10:30 AM VA-TOBACCO USE ADVICE [facility] Aug 31, 2023 10:30 AM VA-TOBACCO USE SWATCH PASTER NO [facility] Aug 31, 2023 10:30 AM VA-TOBACCO USE MED NO [facility] Aug 31, 2023 10:30 AM VA-TOBACCO USE WI 30 MIN OF WAKE UP [facility] Aug 31, 2023 10:30 AM VA-TOBACCO USER EVERY DAY [facility] August 07, 2022 09:00 AM VA-TOBACCO FORMER USER [facility] August 07, 2022 09:00 AM VA-TOBACCO QUIT 1 TO < 5 YRS [facility] Jul 26, 2021 10:30 AM VA-TOBACCO FORMER USER [facility] Jul 26, 2021 10:30 AM VA-TOBACCO QUIT 1 TO < 5 YRS [facility] Apr 05, 2020 09:00 AM VA-TOBACCO DOESNT USE WI 30 MIN WAKEUP [facility] Apr 05, 2020 09:00 AM VA-TOBACCO USE 30 YEARS OR MORE [facility] Apr 05, 2020 09:00 AM VA-TOBACCO USE ADVICE [facility] Apr 05, 2020 09:00 AM VA-TOBACCO USE SWATCH PASTER NO [facility] Apr 05, 2020 09:00 AM VA-TOBACCO USE MED NO [facility] Apr 05, 2020 09:00 AM [place]-TOBACCO USER SOME DAYS [facility] Radiology Reports: +/- 30 days of the encounter Radiology Reports For cases when an order for radiology services may have been completed prior to the date of the Encounter, the report list includes the Radiology Reports that were completed up to 30 days before dateof the Encounter. For cases when an order for radiology services may have been completed after the date of the Encounter, the report list also includes the Radiology Reports that were completed up to30 days after date of the Encounter. The data comes from all [facility] facilities. Date/Time Radiology Report Provider Source Aug 31, 2023 12:00 PM KNEE LEFT 3 VIEWS: RAEGAN CONTE [facility] [id number] [id number] M Exm Date: AUG 31, 2023@12:00 Req Phys: NABIL DICKSON Pat Loc: [facility] PACT SAPPHIRE 4E (Req'g Lo Img Loc: MAIN X-RAY Service: [place] [address] (Case [id number] COMPLETE) KNEE LEFT 3 VIEWS (RAD Detailed) CPT:10917 Proc Modifiers : STANDING LEFT Reason for Study: knee OA pain Clinical History: knee OA pain Responsible provider name and phone number to notify for critical findings if other than user placing the order and pager listed below: User placing orders pager: [phone] LAST CREATININE 1.0 (08/31/23) Report Status: Verified Date Reported: AUG 31, 2023 Date Verified: AUG 31, 2023 Audio Operator E-Sig:/ES/ALEX BERTRAND MD, FACR, CCD Report: EXAMINATION: KNEE LEFT 3 VIEWS 08/31/2023 12:00 PM INDICATION: knee OA pain COMPARISON: None. FINDINGS: The bones appear intact. Moderate degenerative changes associated with joint space narrowing medial femoral tibial joint space. Mild to moderate degenerative changes patellofemoral joint space. A small joint effusion suggested. Impression: Degenerative changes. Primary Interpreting Staff: ALEX BERTRAND MD, FACR, STAFF RADIOLOGIST (Audio Operator) /ALEX GANT [facility] Encounter Notes: All associated encounter notes This section contains the clinical notes associated to the Encounter. Date/Time Encounter Note(s) Provider Source Aug 31, 2023 10:04 AM ADVANCE DIRECTIVE: LOCAL TITLE: AD NOTIFICATION AND SCREENING STANDARD TITLE: ADVANCE DIRECTIVE DATE OF NOTE: AUG 31, 2023@10:04 ENTRY DATE: AUG 31, 2023@10:04:52 AUTHOR: MANAN LUZ EXP COSIGNER: URGENCY: STATUS: COMPLETED ADVANCE DIRECTIVE NOTIFICATION: Patient was given written notification of the following rights: 1. Accept or refuse any medical treatment. 2. Complete a durable power of contract attorney for health care. 3. Complete a living will. ADVANCE DIRECTIVE SCREENING: Does patient have an Advance Directive? The patient does not have an Advance Directive. The patient does not wish to create an Advance Directive for health care. Comment: DECLINED /felix/ MANAN LUZ Advance Head Greenskeeper Signed: 08/31/2023 10:05 MANAN LUZ [facility]
--- OUTSIDE RECORDS SUMMARY | 2023-10-03 16:51 | XMS_ITS | Encounter Summary ---
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 Name Role Phone JOSENABIL ESPARZA Primary Care Provider Unavailabl e Insurance Providers: [...] ARE SUPPL EMENT Oct 29, 2019 PLAN RW [id number] RAEGAN CONTE PATIENT MEDICA [facility] (WNR) MEDICARE ADVANTAGE [facility] (WNR) Mar 30, 2021 [id number] RAEGAN CONTE PATIENT MEDICARE (WNR) MEDICARE (M) PART B Oct 29, 2019 PART B [id number] [phone] RAEGAN CONTE PATIENT MEDICARE (WNR) MEDICARE (M) PART A Mar 30, 2019 PART A [id number] [phone] RAEGAN CONTE PATIENT Selected Encounter This section includes the information on record at [place] for the Encounter. Date/Time Encounter Type Encounter Description Reason Provider Source Jun 30, 2023 10:00 AM PSYTX W PT 30 MINUTES TELEPHONE ICD-10-CM Z13.9 Encounter for screening, unspecified BRENDAN FLAHERTY E Encounter Template Text not used by [facility] Assessments - Encounter Diagnoses This section includes the primary and secondary diagnoses documented for the Encounter. Date/Time Primary/Secondary Diagnosis Diagnosis Name Provider Source Jun 30, 2023 10:00 AM PRIMARY Encounter for screening, unspecified BRENDAN FLAHERTY [facility] Plan of Treatment: Future Appointments (+ 6 months) and Future Tests (+/- 45 days) The Plan of Treatment section includes future care activities for the patient from [facility] [place] [facility]. This section includes future appointments and future orders which are active, pending or scheduled. Future Appointments This section includes appointments that were scheduled to occur 6 months from the date of the Encounter, up to a maximum of 20 appointments. The data comes from all [place] treatment facilities. Appointment Date/Time Appointment Type Appointme nt Facility Name Aug 31, 2023 09:30 AM [facility] Aug 31, 2023 10:30 AM [facility] Aug 31, 2023 12:00 PM [facility] Aug 31, 2023 12:30 PM [facility] Oct 14, 2023 02:15 PM AMBULATORY - SURGERY [facility] Oct 21, 2023 09:15 AM AMBULATORY - SURGERY [facility] Social History: Smoking Status (Most current) and Tobacco Use (All prior to encounter date) This section includes the most current, and the historical, smoking and tobacco- related health factors from the [place] facility where the Encounter took place. Current Smoking Status This section includes the most current smoking, or tobacco-related health factor, from the [place] facility where the Encounter took place. Date/Time Current Smoking Status Comment Joseline cartwright August 07, 2022 09:00 AM VA-TOBACCO FORMER USER [facility] Tobacco Use History This section includes a history of the smoking, or tobacco-related health factors, that were collected on or before the date of the Encounter. The data comes from the [place] facility where the Encounter took place. Date/Time Smoking Status/Tobacco Use Comment F brad August 07, 2022 09:00 AM VA-TOBACCO QUIT 1 TO < 5 YRS [facility] Jul 26, 2021 10:30 AM VA-TOBACCO FORMER USER [facility] Jul 26, 2021 10:30 AM [place]-TO[place]ACCO QUIT 1 TO < 5 YRS [facility] Apr 05, 2020 09:00 AM VA-TOBACCO DOESNT USE WI 30 MIN WAKEUP [facility] Apr 05, 2020 09:00 AM VA-TOBACCO USE 30 YEARS OR MORE [facility] Apr 05, 2020 09:00 AM VA-TOBACCO USE ADVICE [facility] Apr 05, 2020 09:00 AM VA-TOBACCO USE SENIOR PRIVATE CLIENT ADVISOR NO [facility] Apr 05, 2020 09:00 AM VA-TOBACCO USE MED NO [facility] Apr 05, 2020 09:00 AM VA-TOBACCO USER SOME DAYS [facility] Encounter Notes: All associated encounter notes This section contains the clinical notes associated to the Encounter. Date/Time Encounter Note(s) Provider Source Jun 30, 2023 10:00 AM MENTAL HEALTH [facility] M INTERDISCIPLINARY NOTE: LOCAL TITLE: PRIMARY CARE-MH INTEGRATION PROGRESS NOTE STANDARD TITLE: MENTAL HEALTH E & M INTERDISCIPLINARY NOTE DATE OF NOTE: JUN 30, 2023@10:00 ENTRY DATE: JUN 30, 2023@11:19:45 AUTHOR: SHERON FLAHERTY COSIGNER: URGENCY: STATUS: COMPLETED Contact: brief [facility] triage, 18 minutes, by phone Subjective/Objective: Planned to meet with patient for F2F cognitive screen but patient had thought the appoinment would be held via telephone. We agreed to meet for a brief check-in today and to complete cognitive screen at a later date. Patient notes that his memory has been about the same. He has days in which he feels really sharp and days in which he feels foggy. He notes some issues with forgetting names. He notes that if he gets distracted during a task or conversation, it is more difficult to get back on track. Patient notes that his mood remains positive and stable. He has been working on taking good care of his health. He quit smoking and drinking, and has been trying to eat a mediterranean diet. Congratulated him on these changes. DIAGNOSTIC IMPRESSION: encounter for screening (no diagnosis) Risk Assessment (updated 06/30/23): Patient denied past or present suicidal ideation, plan, intent, or behavior. Risk factors: elderly, male, . Protective factors: no depression or SI, good social support, good coping skills, future oriented thinking. Based on risk and protective factors, patient appears to be at low risk for suicide. Treatment Plan: Patient agreed to follow-up with this provider annually for cognitive screen; next appointment will be scheduled to coincide with annual PCP visit. Patient has provider's direct contact information and will call sooner if needed. The patient is not capable of or does not consent to the use of video technology for the service. Visit conducted by audio-only telehealth. Patient verbal consent obtained. Location/emergency contact information confirmed. Limits to confidentiality and risks and benefits of treatment were reviewed at initial visit and patient agreed to participate in treatment. Suicide Screen: C-SSRS Screening Campbell-Suicide Severity Rating Scale (C-SSRS Screener) 1. Over the past month, have you wished you were or wished you could go to sleep and not wake up? No 2. Over the past month, have you had any actual thoughts of killing yourself? No 3. Over the past month, have you been thinking about how you might do this? Response not required due to responses to other questions. 4. Over the past month, have you had these thoughts and had some intention of acting on them? Response not required due to responses to other questions. 5. Over the past month, have you started to work out or worked out the details of how to kill yourself? Response not required due to responses to other questions. 6. If yes, at any time in the past month did you intend to carry out this plan? Response not required due to responses to other questions. 7. In your lifetime, have you ever done anything, started to do anything, or prepared to do anything to end your life (for example, collected pills, obtained a gun, gave away valuables, went to the roof but didn't jump)? No 8. If YES, was this within the past 3 months? Response not required due to responses to other questions. /felix/ Sheron Flaherty, PhD, [facility] Psychologist [phone] Signed: 06/30/2023 11:21 SHERON FLAHERTY [facility]
--- OUTSIDE RECORDS SUMMARY | 2023-10-03 16:51 | XMS_ITS | Encounter Summary ---
Author Name [facility] [place] Address [address] [place] [address] Care Team Providers Care Gear Repair Supervisor Name Role Phone NABIL DICKSON Primary Care [...] ARE SUPPL EMENT Oct 29, 2019 PLAN [id number] [phone] RAEGAN CONTE PATIENT MEDICA [facility] (WNR) MEDICARE ADVANTAGE [facility] (WNR) Mar 30, 2021 [id number] RAEGAN CONTE PATIENT MEDICARE (WNR) MEDICARE (M) PART B Oct 29, 2019 PART B [id number] RAEGAN CONTE PATIENT MEDICARE (WNR) MEDICARE (M) PART A Mar 30, 2019 PART A [id number] RAEGAN CONTE PATIENT Selected Encounter This section includes the information on record at [place] for the Encounter. Date/Time Encounter Type Encounter Description Reason Pro vider Source IHE Encounter Template Text not used by [place]
--- OUTSIDE RECORDS SUMMARY | 2023-10-03 16:51 | XMS_ITS | Encounter Summary ---
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 Name Role Phone KAMILLE URIBE Primary Care Provider Unavailabl e Insurance Providers: [...] SUPPL EMENT Oct 29, 2019 PLAN RW [id number] [phone] RAEGAN CONTE PATIENT MEDICA [facility] (WNR) MEDICARE ADVANTAGE [facility] (WNR) Mar 30, 2021 [id number] RAEGAN CONTE PATIENT MEDICARE (WNR) MEDICARE (M) PART B Oct 29, 2019 PART B [id number] RAEGAN CONTE PATIENT MEDICARE (WNR) MEDICARE (M) PART A Mar 30, 2019 PART A [id number] [phone] RAEGAN CONTE PATIENT Selected Encounter This section includes the information on record at [place] for the Encounter. Date/Time Encounter Type Encounter Description Reason Provider Source Aug 31, 2023 10:30 AM OFFICE O/P EST HI 40 MIN PRIMARY CARE/MEDICINE ICD-10-CM N40.0 Benign prostatic hyperplasia without lower urinry tract symp KAMILLE URIBE [facility] Encounter Template Text not used by [place] Assessments - Encounter Diagnoses This section includes the primary and secondary diagnoses documented for the Encounter. Date/Time Primary/Secondary Diagnosis Diagnosis Name Provider Source Sep 01, 2023 08:24 AM PRIMARY Benign prostatic hyperplasia without lower urinry tract symp ISIDRO URIBE [facility] Sep 01, 2023 08:24 AM SECONDARY Encounter for immunization [facility] Sep 01, 2023 08:24 AM SECONDARY Essential (primary) hypertension ISIDRO URIBE [facility] Sep 01, 2023 08:24 AM SECONDARY Heart failure, unspecified ISIDRO URIBE [facility] Sep 01, 2023 08:24 AM SECONDARY Hyperlipidemia, [facility] Sep 01, 2023 08:24 AM SECONDARY Varicose veins of other specified sites [facility] Plan of Treatment: Future Appointments (+ 6 months) and Future Tests (+/- 45 days) The Plan of Treatment section includes future care activities for the patient from all [facility]. This section includes future appointments and future orders which are active, pending or scheduled. Future Appointments This section includes appointments that were scheduled to occur 6 months from the date of the Encounter, up to a maximum of 20 appointments. The data comes from all [facility]. Appointment Date/Time Appointment Type Appointme nt Facility Name Oct 14, 2023 02:15 PM AMBULATORY - SURGERY [facility] Oct 21, 2023 09:15 AM AMBULATORY - SURGERY [facility] Active, Pending, and Scheduled Orders This section includes a listing of several types of active, pending, and scheduled orders, including clinic medications orders, diagnostic test orders, procedure orders and consult orders; where the start date of the order is 45 days before the date of the Encounter or 45 days after the date of theEncounter. The data comes from all [facility]. Test Date/Time Test Type Test Details Facility Name Aug 31, 2023 05:28 PM Consult Order ORTHOPEDIC S OUTPT-HIP/KNEE Cons Plate [facility] Lab Results: +/- 30 days of the encounter This section includes the Chemistry and Hematology Lab Results on record with [place] for the patient. Radiology Reports and Pathology Reports are provided separately, in subsequent sections. Lab Results This section contains the Chemistry/Hematology Results that were resulted 30 days before or 30 daysafter the date of the Encounter. Date/Time Source Result Type Result - Unit Interpretation Reference Range Comment Aug 31, 2023 09:32 AM [facility] CBC Specimen Type: BLOOD No comment entered. Ordering Provider: ISIDRO URIBE Report Released Date/Time: August 22, 2022 11:41 PM Reporting Lab: [facility] [id number] Performing Lab: [facility] [id number] WBC 6.18 10*3/uL 4.0-11.0 RBC 4.57 10*6/uL L 4.6-6.2 HGB 15.2 g/dL 13.5-17.9 HCT 43.3 41-54 MCV 94.7 fL 80-100 MCH 33.3 pg H 27-33 MCHC 35.1 g/dL 32.0-37.5 PLT 232 10*3/uL 150-400 MPV 10.3 fL 7.4-10.4 RDW 12.7 11.5-14.5 Aug 31, 2023 09:32 AM [facility] BASIC METABOLIC PANEL+MG Specimen Type: PLASMA No comment entered. Ordering Provider: ISIDRO URIBE Report Released Date/Time: August 22, 2022 11:41 PM Reporting Lab: [facility] [id number] Performing Lab: [facility] [id number] CREATININE 1.0 mg/dL 0.7-1.2 UREA NITROGEN 15 mg/dL 8-26 GLUCOSE 104 mg/dL H 70-100 SODIUM 140 mmol/L 136-145 POTASSIUM 3.9 mmol/L 3.5-5.1 CHLORIDE 107 mmol/L 98-107 CO2 26 mmol/L 22-29 CALCIUM 9.0 mg/dL 8.4-10.2 MAGNESIUM 2.1 mg/dL 1.6-2.6 ANION GAP 7 mmol/L 5-15 .CREAT EGFR(CKD-EPI) 81 >60 Aug 31, 2023 09:32 AM [facility] AST/SGOT Specimen Type: PLASMA No comment entered. Ordering Provider: ISIDRO URIBE Report Released Date/Time: August 22, 2022 11:41 PM Reporting Lab: [facility] [id number] Performing Lab: [facility] [id number] AST/SGOT 18 U/L <34 Aug 31, 2023 09:32 AM [facility] ALT/SGPT Specimen Type: PLASMA No comment entered. Ordering Provider: ISIDRO URIBE Report Released Date/Time: August 22, 2022 11:41 PM Reporting Lab: [facility] [id number] Performing Lab: [facility] [id number] ALT/SGPT 25 U/L <55 Aug 31, 2023 09:32 AM [facility] LIPID PANEL,NON-FASTING Specimen Type: PLASMA No comment entered. Ordering Provider: ISIDRO URIBE Report Released Date/Time: August 22, 2022 11:41 PM Reporting Lab: [facility] [phone] Performing Lab: [facility] [phone] CHOLESTEROL 166 mg/dL <199 .HDL 49 mg/dL [...] 123/80 16 97 3 69 185.2 27 [facility] Immunizations: All administered on the encounter date This section contains immunizations associated to the Encounter. Immunization Series Date Issued Reaction Comments TDBOUBACAR Aug 31, 2023 Social History: Smoking Status (Most current) and Tobacco Use (All prior to encounter date) This section includes the most current, and the historical, smoking and tobacco- related health factors from the [place] facility where the Encounter took place. Current Smoking Status This section includes the most current smoking, or tobacco-related health factor, from the [place] facility where the Encounter took place. Date/Time Current Smoking Status Comment Joseline cartwright Aug 31, 2023 10:30 AM VA-TOBACCO USER EVERY DAY [facility] Tobacco Use History This section includes a history of the smoking, or tobacco-related health factors, that were collected on or before the date of the Encounter. The data comes from the [place] facility where the Encounter took place. Date/Time Smoking Status/Tobacco Use Comment F acility Aug 31, 2023 10:30 AM VA-TOBACCO USE ADVICE [facility] Aug 31, 2023 10:30 AM VA-TOBACCO USE CAPACITY PLANNER NO [facility] Aug 31, 2023 10:30 AM VA-TOBACCO USE MED NO [facility] Aug 31, 2023 10:30 AM VA-TOBACCO USE WI 30 MIN OF WAKE UP [facility] Aug 31, 2023 10:30 AM VA-TOBACCO USER EVERY DAY [facility] August 07, 2022 09:00 AM VA-TOBACCO FORMER USER [facility] August 07, 2022 09:00 AM VA-TOBACCO QUIT 1 TO < 5 YRS [facility] Jul 26, 2021 10:30 AM VA-TOBACCO FORMER USER [facility] Jul 26, 2021 10:30 AM VA-TOBACCO QUIT 1 TO < 5 YRS [facility] Apr 05, 2020 09:00 AM VA-TOBACCO DOESNT USE WI 30 MIN WAKEUP [facility] Apr 05, 2020 09:00 AM VA-TOBACCO USE 30 YEARS OR MORE [facility] Apr 05, 2020 09:00 AM VA-TOBACCO USE ADVICE [facility] Apr 05, 2020 09:00 AM VA-TOBACCO USE CAPACITY PLANNER NO [facility] Apr 05, 2020 09:00 AM VA-TOBACCO USE MED NO [facility] Apr 05, 2020 09:00 AM VA-TOBACCO USER SOME DAYS [facility] Radiology Reports: +/- 30 days of the [...] the Encounter. The data comes from all [facility] facilities. Date/Time Radiology Report Provider Source Aug 31, 2023 12:00 PM KNEE LEFT 3 VIEWS: RAEGAN CONTE [facility] [id number] -[id number] M Exm Date: AUG 31, 2023@12:00 Req Phys: KAMILLE URIBE Pat Loc: [facility] PACT SAPPHIRE 4E (Req'g Lo Img Loc: MAIN X-RAY Service: [place] [address] (Case [id number] COMPLETE) KNEE LEFT 3 VIEWS (RAD Detailed) CPT:30699 Proc Modifiers : STANDING LEFT Reason for Study: knee OA pain Clinical History: knee OA pain Responsible provider name and phone number to notify for critical findings if other than user placing the order and pager listed below: User placing orders pager: [phone] LAST CREATININE 1.0 (08/31/23) Report Status: Verified Date Reported: AUG 31, 2023 Date Verified: AUG 31, 2023 Sulfur Chloride Operator E-Sig:/ES/ALEX BERTRAND MD, FACR, CCD Report: [...] Staff: ALEX BERTRAND MD, FACR, STAFF RADIOLOGIST (Sulfur Chloride Operator) /ALEX GANT [facility] Encounter Notes: All associated encounter notes This section contains the clinical notes associated to the Encounter. Date/Time Encounter Note(s) Provider Source Sep 09, 2023 02:08 PM ADDENDUM: LOCAL TITLE: Addendum STANDARD TITLE: ADDENDUM DATE OF NOTE: SEP 09, 2023@14:08 ENTRY DATE: SEP 09, 2023@14:08 AUTHOR: KAMILLE URIBE EXP COSIGNER: URGENCY: STATUS: COMPLETED can you see if he's taking it daily for prevention or PRN. we can switch to valcyclovir which is fewer pills as well. 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 ############################ ############################ #### # Combined: Problem-based HPI/Exam/Assessment/Plan # # Instructions to Patient # ############################ ############################ #### F2F Visit Special/follow up notes: __came with wife_non[facility] Cardiology Dr. Turner - once a year; Still seeing nonVA PCP as well DG 08/31/23 10:30 Reports doing well. No new major changes to health. overall feeling good. doesn't like the varicose veins but helps if he's wearing compression socks has knee pain on L and wants to see ortho. prev has had replacement/surg of shoulder and knees. has scar from prev biopsy site by urology and reports having some discomfort w erections. SLUMS ([employer] Mental Status) Examination Patient alert: Yes Level of education: Scoring of patient's responses to SLUM questions 03/30 day of week 03/30 year 03/30 what state we are in 03/30 how much money spent 2/2 how much money left 3/3 naming of animals in one minute 3/5 remembering 5 objects 2/2 repeating series of numbers backwards 4/4 marking time on clock 2/2 marking X on triangle and largest figure 7/8 answering story questions TOTAL SCORE: 27 Exam: GEN - Alert, awake, no distress. HEENT- no obvious deformities/trauma Lungs - CTAB, no wheezing CV- RRR Normal S1, S2 no m # h/o RLS - stopped requip # HTN, CHF EF 40-45% G1DD 2019 (recovered from 35%) Ectopy on exam - cont to moniotr. patient's not wanting to take any medications if he doesn't need - patient hasn't seen Cardiology for some time and wants to get it checked EKG sinus chely 55. LBBB (present since 2021) #Hyperlipidemia controlled - c/w rosuvastatin # hx HCV ab +/ neg PCR (2021 lab) ?if prev treated # BPH stable continue tamsulosin #EDstable on tadalafil # pain on penis 05/01 prev scar - notified Urology to arrange f/u - lidocaine cream # concern regarding memory SLUMS normal .reassured # concern regarding food undigested like blueburry. recommend chew food better and resume yogurt consumptom # OA of L knee. has been taking supplements without signicants issues - Xray, ortho referral . # varicose veins - use compression socks. ---- Unmodified Notes from Previous A/P for continuity ---- #Osteoarthritisdiclofenac gel as needed and home exercises Provided PT contact # DDD of lumbar spine s/p surgery and doing wellfollow-up as needed # AM nausea that resolves w eating - trial of famotidine. stop eating at night # L groin pull - recovered. no inguinal hernia on CT # small umbilical hernia (Seen on CT)- discussed monitoring for incarceration of hernia. if recurrent pain, refer to gen surg. # diasthesis recti - told pt to look up exercises that can help him. # night sweats - improving. 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 1pack/wk smoker--> STOP since 2021 quit ETOH FHx/PSHx - FHx - dad prostate cancer Preventive screening - 10/2019 colonoscopy 2 polyps; PSA No data available Adv directive - per postings Stable conditions unless discussed above FACIAL SCARS 0% SC Instructed patient to follow up sooner than discussed / per recall if any new concerns or worsening of symptoms. Reviewed available labs/scans today as appropriate. Med/Surg/Fam/Soc Hx: Reviewed and updated as needed in problem list. Nursing notes reviewed. CC in nursing note/HPI. Updated Problem List as needed re past med/surg/fam/social history. RTC - routine f/u appt in 6-12 m (1yr for co-mged pts). //////////////////////////// //////////////////////////// ///////////// Last Vitals: Temp: 98.6 F [37.0 C] (08/07/2022 08:43) Resp: 16 (08/07/2022 08:43) Pulse: 94 (08/07/2022 08:43) Pain: 0 (09/06/2021 09:00) Osat 96% (08/07/2022 08:43) Measurement DT BP 08/07/2022 08:43 118/62 10/02/2021 11:27 115/73 09/06/2021 09:00 118/72 Measurement DT WEIGHT LB(KG)[BMI] 08/07/2022 08:43 192.5(87.32)[29*] 08/22/2021 09:43 190.5(86.41)[29*] 07/26/2021 09:23 191.8(87.00)[28*] //////////////////////////// //////////////////////////// ///////////// Labs/tests: see below. See A/P for relevant discussion. See CPRS problem list for any relevant external results PROBLEM LIST (see CPRS for any updates done during the visit) --------- Active problems - Computerized Problem List is the source for the followin. Sleep apnea - Completed TOD surgery; didn't tolerate cpap 2. GERD - Gastro-Esophageal Reflux Disease ([facility] [id number]) 3. Left bundle branch block - CT A with calcium 0 4. 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 Nash - 45-50% 2021 scanned to [facility] 5. Polyp Colon ([facility] [id number]) - TA 2016 multiple 3yr; 10/2019 2TA; rpt 5yr 6. Kidney stone - <2mm 7. Spinal stenosis of lumbar region 8. Bilateral hearing loss 9. Erectile Dysfunction ([facility] [id number]) 10. Knee pain - per prev notes - medial mensicus tear 11. Past History - Medical - HSV genital w occ flares; glaucoma - Social - smoker 1pk/wk - Mom-breast cancer, father-prostate cancer, brother - carcoidosis, son - dystonia, daughter albinoism 12. HTN - Hypertension ([facility] [id number]) 13. Hyperlipidemia ([facility] [id number]) 14. Benign prostatic hyperplasia 15. Restless legs LAB/TEST DATA See CPRS problem list for any additional external results --------- PSA 0.91 SERUM (08/07/22 08:22) 0.78 SERUM (08/22/21 09:36) HGB - NONE FOUND No data available for: HEMOGLOBIN A1C POC HGB A1C TP HEMOGLOBIN A1C CREATININE - NONE FOUND TSH ____ LDL CALCULATION____ SLT - Lab Tests Selected Collection DT Specimen Test Name Result Units Ref Range 08/07/2022 08:22 PLASMA LDL CALCULATION 86 mg/dL Ref: <= 99 MEASURED LDL____ No data available Measurement DT BP 08/07/2022 08:43 118/62 10/02/2021 11:27 115/73 09/06/2021 09:00 118/72 Measurement DT WEIGHT LB(KG)[BMI] 08/07/2022 08:43 192.5(87.32)[29*] 08/22/2021 09:43 190.5(86.41)[29*] 07/26/2021 09:23 191.8(87.00)[28*] Patient was informed of available lab, imaging, and other study results noted and/or associated with today's visit. Completed medication reconciliation during the visit and updated medication list in CPRS. Provided patient/caregiver regarding any changes and possible side effects, interactions, contraindications and precautions. Patient/caregiver asked to contact clinic with any questions or concerns. Discussed plan of care with patient/caregiver and instructed to contact clinic for any questions/clarifications. Discussed the importance of seeking care PEREZ if any changes/worsening of symptoms, or if any new/concerning symptoms. Patient/caregiver voice understanding of above and no further questions. -------- Medication Reconciliation: Education Evaluations *Was medication education provided for NEW medications or CHANGES to medications? (including medication name, dose, route, reason for use, and potential side effects). Yes. Verbal education was provided to patient/caregiver and patient/caregiver verbalized understanding. TERATOGENIC MED & CONTRACEPTION REVIEW (Optional)... === MEDICATION RECONCILIATION === List Given: An updated medication list was provided to the patient/caregiver. Review Done: The medication list shown below was verified for accuracy and it includes all pending medications/active medications/all medications or discontinued within the last 90 days/all remote medications and non-VA medications. If a given category (i.e. remote meds) is not shown, that means that a patient doesn't have a medication(s) in that category. Allergies listed below were also reviewed/updated for accuracy. Allergies/ADR from [employer] may not display in CPRS. Use JLV Allergies: GLUCOSAMINE (Apr 05, 2020) SHELLFISH (Apr 05, 2020) AMOXICILLIN (Apr 05, 2020) MORPHINE (Apr 05, 2020) For most uptodate list reflecting medication changes from today's visit, please see Meds Tab or the active orders section. Active and Recently Outpatient Medications (including Supplies): Issue Date Status Last Fill Inactive Outpatient Medications Refills Expiration 1) DICLOFENAC NA 1% TOP GEL Qty: 100 for Issu:08-07-22 30 days Sig: APPLY 4 GRAMS TOPICALLY Refills: 11 Last:08-07-22 FOUR TIMES A DAY NEEDED TO AFFECTED Expr:08-08-23 AREA FOR PAIN 2) LIDOCAINE 5% PATCH Qty: 30 for 30 days Issu:08-07-22 Sig: APPLY 1 PATCH TOPICALLY EVERY DAY Refills: 11 Last:08-07-22 NEEDED FOR PAIN Expr:08-08-23 3) LISINOPRIL 5MG TAB Qty: 90 for 90 days Issu:08-07-22 Sig: TAKE ONE TABLET BY MOUTH EVERY Refills: 3 Last:10-17-22 DAY FOR BLOOD PRESSURE WHOLE TAB Expr:08-08-23 4) LISINOPRIL 5MG TAB Qty: 90 for 90 days DISCONTINUED Issu:07-26-22 Sig: TAKE ONE TABLET BY MOUTH EVERY Refills: 3 Last:07-29-22 DAY FOR BLOOD PRESSURE WHOLE TAB Expr:07-27-23 5) METOPROLOL SUCCINATE 25MG SA TAB Qty: Issu:08-07-22 45 for 90 days Sig: TAKE ONE-HALF Refills: 2 Last:11-20-23 TABLET BY MOUTH EVERY DAY Expr:08-08-23 6) ROPINIROLE HCL 1MG TAB Qty: 30 for 30 Issu:08-07-22 days Sig: TAKE ONE TABLET BY MOUTH AT Refills: 5 Last:08-07-22 BEDTIME FOR RESTLESS LEGS SYNDROME Expr:08-08-23 7) ROSUVASTATIN CA 5MG TAB Qty: 90 for 90 Issu:08-07-22 days Sig: TAKE ONE TABLET BY MOUTH Refills: 3 Last:10-28-22 EVERY DAY FOR CHOLESTEROL Expr:08-08-23 8) TADALAFIL 20MG TAB Qty: 18 for 90 days Issu:08-07-22 Sig: TAKE ONE TABLET BY MOUTH AT Refills: 2 Last:02-16-23 BEDTIME NEEDED FOR ERECTILE Expr:08-08-23 DYSFUNCTION 9) TAMSULOSIN HCL 0.4MG CAP Qty: 90 for 90 Issu:08-07-22 days Sig: TAKE ONE CAPSULE BY MOUTH Refills: 1 Last:05-26-23 EVERY DAY Expr:08-08-23 /es/ Kamille Uribe MD Primary Care Staff Physician Signed: 09/01/2023 08:24 KAMILLE URIBE [facility] Aug 31, 2023 11:39 AM ADMINISTRATIVE NOTE: LOCAL TITLE: AFTER VISIT SUMMARY NOTE STANDARD TITLE: ADMINISTRATIVE NOTE DICT DATE: AUG 31, 2023@11:39:26 ENTRY DATE: AUG 31, 2023@11:39:26 DICTATED BY: KAMILLE URIBE EXP COSIGNER: URGENCY: STATUS: COMPLETED The patient was provided with a copy of an after-visit summary at the conclusion of the visit. A copy of the after-visit summary provided to the patient is available in [employer]. SCANNED DOCUMENT SIGNATURE NOT REQUIRED Electronically Filed: 08/31/2023 by: Kamille Uribe MD Primary Care Staff Physician KAMILLE URIBE [facility] Aug 31, 2023 10:38 AM INTERNAL MEDICINE OUTPATIENT NOTE: LOCAL TITLE: MEDICINE CLINIC NURSING NOTE STANDARD TITLE: INTERNAL MEDICINE OUTPATIENT NOTE DATE OF NOTE: AUG 31, 2023@10:38 ENTRY DATE: AUG 31, 2023@10:38:28 AUTHOR: JANINA NORRIS EXP COSIGNER: URGENCY: STATUS: COMPLETED TYPE OF VISIT: Appointment Check In Type of appointment: In-person appointment REASON FOR VISIT: Annual exam, C/O Occassional Nausea that last about 5 minutes at a time for about 2 years ALLERGIES: GLUCOSAMINE (Apr 05, 2020) SHELLFISH (Apr 05, 2020) AMOXICILLIN (Apr 05, 2020) MORPHINE (Apr 05, 2020) VITAL SIGNS: Blood Pressure: 123/80 (08/31/2023 10:35) Pulse: 64 (08/31/2023 10:35) Respiration: 16 (08/31/2023 10:35) Temperature: 98.3 F [36.8 C] (08/31/2023 10:35) Weight: 185.2 lb [84.01 kg] (08/31/2023 10:35) Height: 69 in [175.3 cm] (08/31/2023 10:35) BMI: 27.4 O2 Sat: 97% (08/31/2023 10:35) Pain: 3 (08/31/2023 10:35) PAIN SCREEN: Patient is not having significant pain that they wish to discuss with their provider today. MEDICATION Over the Counter/Herbal Medications: The patient states that they take some outside medications and/or herbals. COVID-19 Immunization: Refused Pfizer Monovalent COVID-19 vaccine Immunization: COVID-19 (PFIZER), MRNA, LNP-S, PF, JUDY-SUCROSE, 30 MCG/0.3 ML (AGES 12+ YEARS) Refusal Reason: PATIENT DECISION Patient refuses all immunization(s) in the COVID-19 group Date Documented: 08/31/23 10:47 Depression Screening: Perform PHQ-2 A PHQ-2 screen was performed. The score was 0 which is a negative screen for depression. Over the past two weeks, how often have you been bothered by the following problems? 1. Little interest or pleasure in doing things Not at all 2. Feeling down, depressed, or hopeless Not at all Alcohol Use Screen (AUDIT-C): Alcohol Screen: SCREEN FOR ALCOHOL (AUDIT-C) An alcohol screening test (AUDIT-C) was negative (score=0). 1. How often did you have a drink containing alcohol in the past year? Consider a drink to be a 12 ounce can or bottle of regular beer, 8 ounces of malt liquor, a 5 ounce glass of table wine, or a 1.5 ounce shot of liquor (like scotch, gin, or vodka). Never 2. How many drinks containing alcohol did you have on a typical day when you were drinking in the past year? Response not required due to responses to other questions. 3. How often did you have six or more drinks on one occasion in the past year? Response not required due to responses to other questions. Nursing Annual Screening: Fall History Screen During the past 12 months, have you had any falls? Patient does not report any falls in the past 12 months. MEDICATIONS: Patient is on one of the following medication classes: Antihypertensives, Antidepressants, Antipsychotics, Diuretics, or Controlled substance medication used for pain. Script Talk Screen Are you able to read your prescription bottles with your glasses, magnifiers or other aids? Yes or patient not taking any prescriptions. Skin Screen Patient reports any current pressure ulcers, a history of pressure ulcers, or a wound from a medical i d sales or Patient is bed-confined or a wheelchair-user or Patient requires assistance to transfer/change position No, Skin Screen is Negative Home Abuse/Violence Screen Is your home free of abuse and violence? Yes MOVE! Program Screen Body Mass Index (BMI)= 27.4 [place]: No data available [place] Hgb A1C: No data available [place] Hgb A1C: No data available Point of Care Hgb A1C: POC HGB A1C____ Outpatient Nutrition Screen Body Mass Index (BMI)= 27.4 [place]: No data available [place] Hgb A1C: No data available [place] Hgb A1C: No data available Point of Care Hgb A1C: POC HGB A1C____ Is patient's BMI less than 18.5? No Does patient have swallowing, coughing, or chewing problems affecting oral intake? No Has patient experienced unplanned weight loss or gain greater than 10 pounds over the last 2 months? No Is patient's Hgb A1C (Glycosylated Hemoglobin) greater than 9.5? Information not available Is patient receiving Total Parenteral Nutrition (TPN) or Tube Feedings? No Patient Health Education Screen BARRIERS/SPECIAL NEEDS: Physical limitations Hearing limitations Visual limitations PREFERRED STYLE OF LEARNING: No preference stated Client Assistive Service (ROB) Screen Does the patient require assistance with outpatient visit? No Tobacco Use Screening: The patient uses tobacco every day. The patient uses tobacco within 30 minutes of waking up. The patient has been smoking or using tobacco for thirty years or more. Patient was advised to quit smoking and/or using tobacco. Discussion with patient included: - Quitting smoking or tobacco use is one of the most important things you can do to protect and improve your health and [place] has the resources to support you. - Set a quit date when you are ready to quit. - Get support from your family and friends. - Review any past quit attempts- What helped? What didn't? - On the day you plan to quit, get rid of all cigarettes and tobacco products from your home, car or work. - Using a combination of behavioral counseling or other support strategies and FDA-approved cessation medications is the most effective way to ensure success in quitting. Patient was offered Behavioral Counseling and other support strategies to assist with quitting. Discussion with patient included: - Behavioral counseling or other support strategies greatly increases your chances of successfully quitting smoking or tobacco use by helping you develop a quit plan and providing support and other strategies to make behavioral changes to help you quit. - [place] has a number of behavioral counseling options to help you with quitting, including: * Provide information about the facility smoking or tobacco use treatment options or clinics * [place]'s national quitline, 1-417-WVAL-VET, with counseling available Thursday-Thursday The patient was not interested in receiving additional information about how to use the treatment options discussed. Patient was offered FDA-approved cessation medications. Discussion with patient included: - Medications for Nicotine replacement therapy such as the patch, gum or lozenge, and other medications such as varenicline or bupropion, can play an important role in the initial weeks and months after you quit smoking or tobacco use. - Medications help with cravings and withdrawal symptoms and they greatly increase your chances of successfully quitting. The patient was not interested in a prescription for tobacco cessation medications. Herpes Zoster (Shingles) Vaccine: The patient declines to receive the recommended dose of zoster (shingles) vaccine. Immunization: ZOSTER RECOMBINANT Refusal Reason: PATIENT DECISION Patient refuses all immunization(s) in the ZOSTER group Date Documented: 08/31/23 10:53 Pneumococcal Conjugate Vaccine (PCV15/PCV20): Refuses PCV vaccine Immunization: PNEUMOCOCCAL CONJUGATE, UNSPECIFIED FORMULATION Refusal Reason: PATIENT DECISION Patient refuses all immunization(s) in the PneumoPCV group Date Documented: 06/03/24 10:53 Td / Tdap Immunization: Administered: TDAP Date Administered: Aug 31, 2023 10:30 Director Dental Services: [employer] Lot: [id number] Exp Date: Sep 16, 2025 [facility]: [id number] Admin Route/Site: INTRAMUSCULAR/LEFT DELTOID Dosage: 0.5mL Vaccine Information Statement(s): TDAP (TETANUS, DIPHTHERIA, PERTUSSIS) VACCINE VIS Nov 02, 2020 ([facility]GALI) Order By: Policy Administered By: Janina Norris Vaccine Information Sheet (VIS) was given to the patient/caregiver, education regarding adverse reactions was discussed, as well as barriers to learning, if any, were acknowledged. /es/ JANINA NORRIS DYE MAKER Signed: 08/31/2023 10:56 JANINA NORRIS [facility] Aug 31, 2023 07:38 AM INTERNAL MEDICINE NOTE: LOCAL TITLE: MEDICINE CLINIC NOTE STANDARD TITLE: INTERNAL MEDICINE NOTE DATE OF NOTE: AUG 31, 2023@07:38 ENTRY DATE: AUG 31, 2023@07:38:19 AUTHOR: KAMILLE URIBE EXP COSIGNER: URGENCY: STATUS: COMPLETED MEDICINE CLINIC NOTE Has ADDENDA F2F PR[facility] C[facility] Name: RAEGAN CONTE Age: 68 [address] [facility] [address] Occupation: UNKNOWN Service Branch: [employer] Total time spent on patient care including chart/diagnostic/test review, patient interview/examination, ordering medications/tests, interpreting results,and counseling/documentation was 45 minutes. ############################ ############################ #### # Combined: Problem-based HPI/Exam/Assessment/Plan # # Instructions to Patient # ############################ ############################ #### F2F Visit Special/follow up notes: __came with wife_[facility] Cardiology Dr. Turner - once a year; Still seeing nonVA PCP as well MACENANY 08/31/23 10:30 Reports doing well. No new major changes to health. overall feeling good. doesn't like the varicose veins but helps if he's wearing compression socks has knee pain on L and wants to see ortho. prev has had replacement/surg of shoulder and knees. has scar from prev biopsy site by urology and reports having some discomfort w erections. [facility] ([facility] Mental Status) Examination Patient alert: Yes Level of education: Scoring of patient's responses to SLUM questions / day of week 03/30 year 03/30 what state we are in 03/30 how much money spent 2/2 how much money left 3/3 naming of animals in one minute 3/5 remembering 5 objects 2/2 repeating series of numbers backwards 4/4 marking time on clock 2/2 marking X on triangle and largest figure 7/8 answering story questions TOTAL SCORE: 27 Exam: GEN - Alert, awake, no distress. HEENT- no obvious deformities/trauma Lungs - CTAB, no wheezing CV- RRR Normal S1, S2 no m # h/o RLS - stopped requip # HTN, CHF EF 40-45% G1DD 2019 (recovered from 35%) Ectopy on exam - cont to moniotr. patient's not wanting to take any medications if he doesn't need - patient hasn't seen Cardiology for some time and wants to get it checked EKG sinus chely 55. LBBB (present since 2021) #Hyperlipidemia controlled - c/w rosuvastatin # hx HCV ab +/ neg PCR (2021 lab) ?if prev treated # BPH stable continue tamsulosin #EDstable on tadalafil # pain on penis 05/01 prev scar - notified Urology to arrange f/u - lidocaine cream # concern regarding memory SLUMS normal .reassured # concern regarding food undigested like blueburry. recommend chew food better and resume yogurt consumptom # OA of L knee. has been taking supplements without signicants issues - Xray, ortho referral . # varicose veins - use compression socks. ---- Unmodified Notes from Previous A/P for continuity ---- #Osteoarthritisdiclofenac gel as needed and home exercises Provided PT contact # DDD of lumbar spine s/p surgery and doing wellfollow-up as needed # AM nausea that resolves w eating - trial of famotidine. stop eating at night # L groin pull - recovered. no inguinal hernia on CT # small umbilical hernia (Seen on CT)- discussed monitoring for incarceration of hernia. if recurrent pain, refer to gen surg. # diasthesis recti - told pt to look up exercises that can help him. # night sweats - improving. 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 1pack/wk smoker--> STOP since 2021 quit ETOH FHx/PSHx - FHx - dad prostate cancer Preventive screening - 10/2019 colonoscopy 2 polyps; PSA No data available Adv directive - per postings Stable conditions unless discussed above FACIAL SCARS 0% SC Instructed patient to follow up sooner than discussed / per recall if any new concerns or worsening of symptoms. Reviewed available labs/scans today as appropriate. Med/Surg/Fam/Soc Hx: Reviewed and updated as needed in problem list. Nursing notes reviewed. CC in nursing note/HPI. Updated Problem List as needed re past med/surg/fam/social history. RTC - routine f/u appt in 6-12 m (1yr for co-mged pts). //////////////////////////// //////////////////////////// ///////////// Last Vitals: Temp: 98.6 F [37.0 C] (08/07/2022 08:43) Resp: 16 (08/07/2022 08:43) Pulse: 94 (08/07/2022 08:43) Pain: 0 (09/06/2021 09:00) Osat 96% (08/07/2022 08:43) Measurement DT BP 08/07/2022 08:43 118/62 10/02/2021 11:27 115/73 09/06/2021 09:00 118/72 Measurement DT WEIGHT LB(KG)[BMI] 08/07/2022 08:43 192.5(87.32)[29*] 08/22/2021 09:43 190.5(86.41)[29*] 07/26/2021 09:23 191.8(87.00)[28*] //////////////////////////// //////////////////////////// ///////////// Labs/tests: see below. See A/P for relevant discussion. See CPRS problem list for any relevant external results PROBLEM LIST (see CPRS for any updates done during the visit) --------- Active problems - Computerized Problem List is the source for the followin. Sleep apnea - Completed TOD surgery; didn't tolerate cpap 2. GERD - Gastro-Esophageal Reflux Disease ([facility] [id number]) 3. Left bundle branch block - CT A with calcium 0 4. 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 Nash - 45-50% 2021 scanned to [facility] 5. Polyp Colon ([facility] [id number]) - TA 2016 multiple 3yr; 10/2019 2TA; rpt 5yr 6. Kidney stone - <2mm 7. Spinal stenosis of lumbar region 8. Bilateral hearing loss 9. Erectile Dysfunction ([facility] [id number]) 10. Knee pain - per prev notes - medial mensicus tear 11. Past History - Medical - HSV genital w occ flares; glaucoma - Social - smoker 1pk/wk - Mom-breast cancer, father-prostate cancer, brother - carcoidosis, son - dystonia, daughter albinoism 12. HTN - Hypertension ([facility] [id number]) 13. Hyperlipidemia ([facility] [id number]) 14. Benign prostatic hyperplasia 15. Restless legs LAB/TEST DATA See CPRS problem list for any additional external results --------- PSA 0.91 SERUM (08/07/22 08:22) 0.78 SERUM (08/22/21 09:36) HGB - NONE FOUND No data available for: HEMOGLOBIN A1C POC HGB A1C TP HEMOGLOBIN A1C CREATININE - NONE FOUND TSH ____ LDL CALCULATION____ SLT - Lab Tests Selected Collection DT Specimen Test Name Result Units Ref Range 08/07/2022 08:22 PLASMA LDL CALCULATION 86 mg/dL Ref: <= 99 MEASURED LDL____ No data available Measurement DT BP 08/07/2022 08:43 118/62 10/02/2021 11:27 115/73 09/06/2021 09:00 118/72 Measurement DT WEIGHT LB(KG)[BMI] 08/07/2022 08:43 192.5(87.32)[29*] 08/22/2021 09:43 190.5(86.41)[29*] 07/26/2021 09:23 191.8(87.00)[28*] Patient was informed of available lab, imaging, and other study results noted and/or associated with today's visit. Completed medication reconciliation during the visit and updated medication list in CPRS. Provided patient/caregiver regarding any changes and possible side effects, interactions, contraindications and precautions. Patient/caregiver asked to contact clinic with any questions or concerns. Discussed plan of care with patient/caregiver and instructed to contact clinic for any questions/clarifications. Discussed the importance of seeking care PEREZ if any changes/worsening of symptoms, or if any new/concerning symptoms. Patient/caregiver voice understanding of above and no further questions. -------- Medication Reconciliation: Education Evaluations *Was medication education provided for NEW medications or CHANGES to medications? (including medication name, dose, route, reason for use, and potential side effects). Yes. Verbal education was provided to patient/caregiver and patient/caregiver verbalized understanding. TERATOGENIC MED & CONTRACEPTION REVIEW (Optional)... === MEDICATION RECONCILIATION === List Given: An updated medication list was provided to the patient/caregiver. Review Done: The medication list shown below was verified for accuracy and it includes all pending medications/active medications/all medications or discontinued within the last 90 days/all remote medications and non-VA medications. If a given category (i.e. remote meds) is not shown, that means that a patient doesn't have a medication(s) in that category. Allergies listed below were also reviewed/updated for accuracy. Allergies/ADR from [employer] may not display in CPRS. Use JLV Allergies: GLUCOSAMINE (Apr 05, 2020) SHELLFISH (Apr 05, 2020) AMOXICILLIN (Apr 05, 2020) MORPHINE (Apr 05, 2020) For most uptodate list reflecting medication changes from today's visit, please see Meds Tab or the active orders section. Active and Recently Outpatient Medications (including Supplies): Issue Date Status Last Fill Inactive Outpatient Medications Refills Expiration 1) DICLOFENAC NA 1% TOP GEL Qty: 100 for Issu:08-07-22 30 days Sig: APPLY 4 GRAMS TOPICALLY Refills: 11 Last:08-07-22 FOUR TIMES A DAY NEEDED TO AFFECTED Expr:08-08-23 AREA FOR PAIN 2) LIDOCAINE 5% PATCH Qty: 30 for 30 days Issu:08-07-22 Sig: APPLY 1 PATCH TOPICALLY EVERY DAY Refills: 11 Last:08-07-22 NEEDED FOR PAIN Expr:08-08-23 3) LISINOPRIL 5MG TAB Qty: 90 for 90 days Issu:08-07-22 Sig: TAKE ONE TABLET BY MOUTH EVERY Refills: 3 Last:10-17-22 DAY FOR BLOOD PRESSURE WHOLE TAB Expr:08-08-23 4) LISINOPRIL 5MG TAB Qty: 90 for 90 days DISCONTINUED Issu:07-26-22 Sig: TAKE ONE TABLET BY MOUTH EVERY Refills: 3 Last:07-29-22 DAY FOR BLOOD PRESSURE WHOLE TAB Expr:07-27-23 5) METOPROLOL SUCCINATE 25MG SA TAB Qty: Issu:08-07-22 45 for 90 days Sig: TAKE ONE-HALF Refills: 2 Last:02-16-23 TABLET BY MOUTH EVERY DAY Expr:08-08-23 6) ROPINIROLE HCL 1MG TAB Qty: 30 for 30 Issu:08-07-22 days Sig: TAKE ONE TABLET BY MOUTH AT Refills: 5 Last:08-07-22 BEDTIME FOR RESTLESS LEGS SYNDROME Expr:08-08-23 7) ROSUVASTATIN CA 5MG TAB Qty: 90 for 90 Issu:08-07-22 days Sig: TAKE ONE TABLET BY MOUTH Refills: 3 Last:10-28-22 EVERY DAY FOR CHOLESTEROL Expr:08-08-23 8) TADALAFIL 20MG TAB Qty: 18 for 90 days Issu:08-07-22 Sig: TAKE ONE TABLET BY MOUTH AT Refills: 2 Last:02-16-23 BEDTIME NEEDED FOR ERECTILE Expr:08-08-23 DYSFUNCTION 9) TAMSULOSIN HCL 0.4MG CAP Qty: 90 for 90 Issu:08-07-22 days Sig: TAKE ONE CAPSULE BY MOUTH Refills: 1 Last:05-26-23 EVERY DAY Expr:08-08-23 /felix/ Kamille Uribe MD Primary Care Staff Physician Signed: 09/01/2023 08:24 09/09/2023 ADDENDUM STATUS: COMPLETED can you see if he's taking it daily for prevention or PRN. we can switch to valcyclovir which is fewer pills as well. Thanks /felix/ Kamille Uribe MD Primary Care Staff Physician Signed: 09/10/2023 07:34 Receipt Acknowledged By: * AWAITING SIGNATURE * [facility]
--- OUTSIDE RECORDS SUMMARY | 2023-10-03 16:51 | XMS_ITS | Encounter Summary ---
Author Name [facility] Organization [facility] Address [address] [place] [address] Care Team Providers Care Legal Researcher Name Role Phone KAMILLE URIBE Primary Care [...] SUPPL EMENT Oct 29, 2019 PLAN RW [id number] [phone] RAEGAN CONTE PATIENT MEDICA MCR (WNR) MEDICARE ADVANTAGE [facility] (WNR) Mar 30, 2021 [id number] RAEGAN CONTE PATIENT MEDICARE (WNR) MEDICARE (M) PART B Oct 29, 2019 PART B [id number] RAEGAN CONTE PATIENT MEDICARE (WNR) MEDICARE (M) PART A Mar 30, 2019 PART A [id number] [phone] RAEGAN CONTE PATIENT Selected Encounter This section includes the information on record at [place] for the Encounter. Date/Time Encounter Type Encounter Description Reason Provider Source Jan 22, 2023 01:58 PM Outpatient Encounter ADMIN PAT ACTIVTIES (MASNONCT) JUANY VANCE [place] Encounter Template Text not used by [facility] Social History: Smoking Status (Most current) and Tobacco Use (All prior to encounter date) This section includes the most current, and the historical, smoking and tobacco- related health factors from the [place] facility where the Encounter took place. Current Smoking Status This section includes the most current smoking, or tobacco-related health factor, from the [place] facility where the Encounter took place. Date/Time Current Smoking Status Comment Joseline ity August 07, 2022 09:00 AM VA-TOBACCO FORMER USER [facility] Tobacco Use History This section includes a history of the smoking, or tobacco-related health factors, that were collected on or before the date of the Encounter. The data comes from the [facility] where the Encounter took place. Date/Time Smoking Status/Tobacco Use Comment F acility August 07, 2022 09:00 AM VA-TOBACCO QUIT 1 TO < 5 YRS [facility] Jul 26, 2021 10:30 AM VA-TOBACCO FORMER USER [facility] Jul 26, 2021 10:30 AM VA-TOBACCO QUIT 1 TO < 5 YRS [facility] Apr 05, 2020 09:00 AM VA-TOBACCO DOESNT USE WI 30 MIN WAKEUP [facility] Apr 05, 2020 09:00 AM VA-TOBACCO USE 30 YEARS OR MORE [facility] Apr 05, 2020 09:00 AM VA-TOBACCO USE ADVICE [facility] Apr 05, 2020 09:00 AM VA-TOBACCO USE INSULATION PROFESSIONAL NO [facility] Apr 05, 2020 09:00 AM VA-TOBACCO USE MED NO [facility] Apr 05, 2020 09:00 AM VA-TOBACCO USER SOME DAYS [facility] Radiology Reports: +/- 30 days [...] the Encounter. The data comes from all [place] treatment facilities. Date/Time Radiology Report Provider Source Jan 21, 2023 09:54 AM LNR INCIDENTAL NODULE LD FOLLOW UP: RAEGAN CONTE [facility] [id number] M Exm Date: JAN 21, 2023@09:54 Req Phys: PHONG WILKS Loc: [facility] PULM CHART CHECK [facility] (Req' Img Loc: CT IMAGING Service: Unknown (Case [id number] COMPLETE) LNR INCIDENTAL NODULE LD FOLLOW U(CT Detailed) CPT:67555 Proc Modifiers : LOW DOSE PROTOCOL Reason for Study: Low Dose CT F/U Nodule Clinical History: IS NOT under investigation for COVID-19 or is COVID-19 negative lung nodule tracking Responsible provider name and phone number to notify for critical findings if other than user placing the order and pager listed below: User placing orders pager: LAST 3: Collection DT Specimen Test Name Result Units Ref Range 08/22/2021 09:36 PLASMA CREATININE 0.9 mg/dL 0.7 - 1.2 07/26/2021 09:15 PLASMA CREATININE 0.9 mg/dL 0.7 - 1.2 01/14/2021 12:46 PLASMA CREATININE 0.8 mg/dL 0.7 - 1.2 08/22/2021 09:36 PLASMA CREAT EGFR(CKD-EP >90 Ref: >=60 07/26/2021 09:15 PLASMA CREAT EGFR(CKD-EP >90 Ref: >=60 01/14/2021 12:46 PLASMA ESTIMATED GFR(eGF >60 Ref: >=60 04/05/2020 10:21 PLASMA ESTIMATED GFR(eGF >60 Ref: >=60 Allergies: No data available for: .BERMUDA GRASS IGE .ORCHARD GRASS IGE .RED TOP GRASS IGE .COMMON RAGWEED IGE .GIANT RAGWEED IGE .ROUGH MAR ELDER IGE .MAPLE BOX ELDER,IGE .BIRCH IGE .OAK IGE .ELM IGE .CAT DANDER IGE .DOG DANDER IGE .CLAD HERBARUM IGE .ASPER FUMIGATUS IGE .ALTER ALTERNATA IGE .H DUST(H-ST) IGE .D.PTERONYSSINUS IGE .COCKROACH IGE Report Status: Verified Date Reported: JAN 21, 2023 Date Verified: JAN 21, 2023 Top Coater E-Sig:/ES/MAXIMO GRACIA MD Report: EXAM: Non-Contrast Low-Dose CT Chest for Incidentally Detected Pulmonary Nodules, 01/21/2023 HISTORY: Follow-up pulmonary nodules. COMPARISON: Previous dated 01/24/2022, 01/30/2021 TECHNIQUE: Low dose CT chest without IV contrast. Axial and coronal images were obtained. DOSE: DLP: 51.46, mGy.cm/CTDIvol Mean: 1.41, mGy FINDINGS: Pulmonary nodules: Index Pulmonary Nodule: Average diameter: 6 mm Density: Solid nodule Location: Posterior right lower lobe Image: Series 3 Image 182 Suspicious features: None Other characteristics: Subpleural Change in diameter: Unchanged since 01/30/2021. Number of nodules on current exam: 2 to 5 nodules Size Stratification: At least one 6 mm but < 8 mm Other Pulmonary Nodules: Stable 5 mm subpleural nodule in the lateral right lower lobe image 226 series 3. Stable 3 mm subpleural nodule in the posterior left lower lobe image 223 series 3. No new nodules. Other lung findings: Mild emphysematous changes most pronounced in the lung apices. Stable fibrotic changes in the lung apices bilaterally. Pleura: No pleural effusions, pleural thickening or pleural-based calcifications. Mediastinum: Low attenuating lesion adjacent to versus exophytic from the left lobe of the thyroid images 52-85 series 2 measuring approximately 2.3 x 1.9 x 2.4 cm. This previously measured 2.2 x 1.8 x 2.2 cm in 202. Left vertebral artery arises from the aortic arch which is a normal variant. Mildly atherosclerotic thoracic aorta. Great vessels of normal caliber. Heart size within normal. No pericardial effusion. No significant mediastinal lymphadenopathy by size criteria. Mild esophageal wall thickening not significant changed since 202. Esophagitis cannot be excluded. Mild mucus along the posterior wall of the trachea. Central tracheobronchial tree clear. Upper abdomen: Low attenuating lesion within the left lobe of the liver segment IVb image 587 series 2 likely corresponding to a small cyst seen on prior CT dating back to 2020. A few scattered colonic diverticuli partially imaged. Very limited upper abdomen otherwise unremarkable. Bones and soft tissues: Mild thoracic degenerative changes. Old nonunited fracture involving the left 1st rib image 125 series 6 unchanged. Degenerative changes in both shoulders. No axillary lymphadenopathy. Impression: 1. Solid pulmonary nodules in the lung parenchyma bilaterally as described above largest in the right lower lobe measuring 6 mm unchanged since 01/30/2021. No new pulmonary nodules. Follow up per Fleischner Society 2017 guidelines. 2. Stable incidental findings as described above.. Primary Interpreting Staff: MAXIMO GRACIA MD, RADIOLOGIST (Top Coater) /MAXIMO RUANO [facility] Encounter Notes: All associated encounter notes This section contains the clinical notes associated to the Encounter. Date/Time Encounter Note(s) Provider Source Jan 22, 2023 02:01 PM LETTERS: LOCAL TITLE: FOLLOW UP RESULTS LETTER STANDARD TITLE: LETTERS DATE OF NOTE: JAN 22, 2023@14:01 ENTRY DATE: JAN 22, 2023@14:01:30 AUTHOR: JUANY VANCE EXP COSIGNER: URGENCY: STATUS: COMPLETED [facility] [address] [place] [address] Dec RAEGAN CONTE [address] [facility] [id number] Dear : Your recent chest imaging on Dec showed: no lung nodules that require further follow up at this time. no change in the nodule(s) on your chest CT scans over a long enough period of time that we can now consider them to be benign (or cancer free). No further follow-up of the nodule(s) is necessary. JUANY VANCE RN REGISTERED NURSE JUANY VANCE [facility] Jan 22, 2023 02:00 PM ADDENDUM: LOCAL TITLE: Addendum STANDARD TITLE: ADDENDUM DATE OF NOTE: JAN 22, 2023@14:00:51 ENTRY DATE: JAN 22, 2023@14:00:51 AUTHOR: JUANY AVNCE EXP COSIGNER: URGENCY: STATUS: COMPLETED --->PCP FYI Lung Nodule Tracking has been completed. No further surveillance of these nodules is indicated per Fleischner Society Guidelines. /felix/ JUANY VANCE RN REGISTERED NURSE Signed: 01/22/2023 14:01 Receipt Acknowledged By: 01/25/2023 18:24 /es/ Kamille Uribe MD Primary Care Staff Physician --- Original Document --- 01/22/23 PULMONARY LUNG NODULE NOTE: Tracking ended. Date of initial imaging exam: 01/30/2021 Lnr Initial Image Date Date of current follow up image: January 21, 2023 Site: [facility] Reason nodule will no longer be tracked: Tracking completed per guidelines. Plan: Patient will be discharged from lung nodule tracking. No further follow up is needed at this time. Results letter sent to patient. 01/21/23 Impression: 1. Solid pulmonary nodules in the lung parenchyma bilaterally as described above largest in the right lower lobe measuring 6 mm unchanged since 01/30/2021. No new pulmonary nodules. Follow up per Fleischner Society 2017 guidelines. 2. Stable incidental findings as described above.. /radha VANCE RN REGISTERED NURSE Signed: 01/22/2023 13:59 JUANY VANCE [facility] Jan 22, 2023 01:58 PM PULMONARY NOTE: LOCAL TITLE: PULMONARY LUNG NODULE NOTE STANDARD TITLE: PULMONARY NOTE DATE OF NOTE: JAN 22, 2023@13:58 ENTRY DATE: JAN 22, 2023@13:58:14 AUTHOR: JUANY VANCE EXP COSIGNER: URGENCY: STATUS: COMPLETED PULMONARY LUNG NODULE NOTE Has ADDENDA Tracking ended. Date of initial imaging exam: 01/30/2021 Lnr Initial Image Date Date of current follow up image: January 21, 2023 Site: [facility] Reason nodule will no longer be tracked: Tracking completed per guidelines. Plan: Patient will be discharged from lung nodule tracking. No further follow up is needed at this time. Results letter sent to patient. 01/21/23 Impression: 1. Solid pulmonary nodules in the lung parenchyma bilaterally as described above largest in the right lower lobe measuring 6 mm unchanged since 01/30/2021. No new pulmonary nodules. Follow up per Fleischner Society 2017 guidelines. 2. Stable incidental findings as described above.. /felix/ JUANY VANCE RN REGISTERED NURSE Signed: 01/22/2023 13:59 01/22/2023 ADDENDUM STATUS: COMPLETED --->PCP FYI Lung Nodule Tracking has been completed. No further surveillance of these nodules is indicated per Fleischner Society Guidelines. /radha VANCE RN REGISTERED NURSE Signed: 01/22/2023 14:01 Receipt Acknowledged By: * AWAITING SIGNATURE * KAMILLE URIBE MARISSA M [facility]
--- OUTSIDE RECORDS SUMMARY | 2023-10-03 16:51 | XMS_ITS | Clinical Summary ---
Author Organization [email or web address] [facility] Address [place], [place] [address] Care Team Providers Care Principal Examiner Name Role Phone Jose M Nash MD Unavailable [phone] [place] [address] Primary Care Provider [phone] Allergies Active Allergy Reactions Criticality Noted Date Comments Amoxicillin Vomiting 08/08/2014 Severe Vomiting. Beta-Blockers (Beta-Adrenergic Blocking Agts) Dizziness 10/09/2016 Glucosamine Anaphylaxis High 08/09/2014 Hydrocodone-Acetaminophen Itching Low 08/30/2014 Morphine Vomiting 10/07/2005 Shellfish Containing Products Anaphylaxis,Edema High 10/07/2005 Medications Medication Sig Dispensed Refills Start Date End Date Status CENTRUM SILVER TAB take 1 tablet by oral route once daily 0 06/19/2007 Active brimonidine (ALPHAGAN) 0.2 % ophthalmic solutionIndications: Primary open angle glaucoma of both eyes, mild stage Place 1 Drop into both eyes 3 times daily. 15 mL 6 06/02/2017 Active ginkgo biloba 40 mg tab Take 120 mg by mouth once daily. Active lisinopril (PRINIVIL; ZESTRIL) 5 mg tabletIndications:Ch ronic systolic heart failure (HC) Take 1 tablet by mouth once daily. 90 tablet 3 05/20/2019 Active metoprolol succinate (TOPROL XL) 25 mg Sustained-Release tabletIndications:Ch ronic systolic heart failure (HC) Take 0.5 tablets by mouth once daily. 45 tablet 3 05/20/2019 Active rosuvastatin (CRESTOR) 5 mg tabletIndications:Ca rdiomyopathy, nonischemic (HC),Dyslipidemia TAKE A HALF TABL BY MOUTH ONCE PER WEEK 6 tablet 3 08/23/2019 Active tamsulosin (FLOMAX) 0.4 mg capsuleIndications:N octuria TAKE 1 CAPSULE BY MOUTH ONCE DAILY AFTER A MEAL FOR URINARY SYMPTOMS 90 capsule 1 12/22/2019 Active latanoprost (XALATAN) 0.005 % ophthalmic solutionIndications: Low tension glaucoma, mild stage, unspecified laterality Place 1 Drop into both eyes once daily in the evening. (refrigerate until first opened for use) 7.5 mL 2 12/22/2019 Active acyclovir (ZOVIRAX) 400 mg tabletIndications:Ge nital herpes simplex, unspecified site TAKE ONE TABLET BY MOUTH TWICE A DAY . JUST WHEN YOU HAVE AN OUTBREAK 20 tablet. 1 04/03/2020 Active sildenafil citrate (VIAGRA) 100 mg tabletIndications:Er ectile dysfunction, unspecified erectile dysfunction type TAKE 1/2 TO 1 TABLET 30 MIN TO 4 HOURS BEFORE SEXUAL ACTIVITY. MAX 100MG/24HR (DISCONTINUE CIALIS) 18 tablet 6 04/03/2020 Active Active Problems Problem Noted Date Diagnosed Date Other male erectile dysfunction 04/21/2018 Overview: March 2018: Dr. Nash (Fuel Attendant) Started Viagra. Sensorineural hearing loss, bilateral 02/24/2018 Low back pain 09/10/2017 Lumbar spinal stenosis 09/10/2017 Nuclear senile cataract of both eyes 04/10/2017 Hyperopia of both eyes with astigmatism and pres byopia 04/10/2017 Cardiomyopathy, nonischemic 04/14/2016 Overview: September 2016: Cardiology follow up : Nonischemic cardiomyopathy, NYHA Class II, EF 35% March 2017: Dr. Jules second opinion visit see notes. Dyslipidemia 02/14/2016 Adenomatous colon polyp 12/04/2015 Overview: Colonoscopy 11/2015 multiple polyps repeat in 3 years Colonoscopy 10/2019 polyp, repeat in 5 years Kidney stone 01/25/2014 Overview: Dec 2013: NFLD ER< 2mm stone on left. TOD 12/17/2011 AHI-6.4 12/23/2011 Tear of medial cartilage or meniscus of knee, cu rrent 11/06/2010 LBBB (left bundle branch block) 10/28/2010 Overview: 2003. Seen by Fuel Attendant. Nuclear stress negative. July 2014: Indeterminate Nuclear Stress Test for preop, Cardiology consult Dr. Turner, CT Angiogram with calcium score of zero and normal Coronary arteries, and echocardiogram. Contact dermatitis and other eczema, due to unspecified cause 10/07/2005 Impotence of organic origin 10/07/2005 SNORING 10/19/2002 GERD without esophagitis 08/12/2002 DISORDER, TOBACCO USE 11/06/2000 Genital herpes, unspecified 08/16/1999 SHOCK, ANAPHYLACTIC DUE TO FOOD NOS Resolved Problems Problem Noted Date Diagnosed Date Resolved Date Screening cholesterol level 01/25/2014 01/11/2016 Overview: Dec 2013: ASCVD Risk Brisket Puller: 8.7 % 10 Year risk after info entered, discuss option of statin at follow up appointment. Open angle with borderline findings, low risk 12/12/19 06 02/11/2011 SLEEP APNEA 10/19/2002 01/12/2012 Immunizations Name Administration Dates Next Due Influenza, IIV3 (Age >=3 years) 04/09/2012,01/08 Influenza, IIV4 04/07/2017 Tdap 09/23/2010 Family History Medical History Relation Name Comments Other Brother 1 SARCOIDOSIS Good Health Brother 2 Other Daughter Albinoism. Cancer-prostate Father Other Father glaucoma Cancer-breast Mother Genetic Other No hx of DM, HT N, CAD, or colon cancer.~Father is 90 y/o, has prostate cancer.~Mother is 85 y/o, breast cancer.~2 brothers and 1 sister. All are in good health~Dad-cataracts~Sister was born cross eyed, had surgery at a young age Good Health Sister Other Son Dystonia. Relation Name Status Comments Brother 1 Brother 2 Daughter Father Alive Mother Alive Other Sister Son Social History Tobacco Use Types Packs/Day Years Used Date Smoking Tobacco: Former Cigarettes 0.1 52.1 0 03/30/1965 - 04/30/2017 Smokeless Tobacco: Never Tobacco Cessation:Counseling Given: Yes Alcohol Use Standard Drinks/Week Comments Yes 0 (1 standard drink = 0.6 oz pure alcohol) Alcoholic Drinks/day: less than daily. PHQ-2 Answer Date Recorded PHQ-2 TOTAL SCORE 0 09/19/2019 Social Connections Answer Date Recorded Frequency of Communication with Friends and Fami ly Not on file 03/30/2021 Financial Resource Strain Answer Date R ecorded Difficulty of Paying Living Expenses Not on file 03/30/2021 Difficulty of Paying Living Expenses Not on file 03/30/2021 Sex and Gender Information Value Date Recorded Sex Assigned at Not on file Gender Identity Not on file Sexual Orientation Not on file Obstetrics History Last Filed Vital Signs Vital Sign Reading Time Taken Comments Blood Pressure 96/63 07/18/2021 8:28 AM CDT Pulse 64 07/18/2021 8:22 AM CDT Temperature 36.2 ??C (97.1 ??F) 07/18/2021 8:22 AM CD T Respiratory Rate 16 07/18/2021 8:22 AM CDT Oxygen Saturation 96% 07/18/2021 8:22 AM CDT Inhaled Oxygen Concentration - - Weight 87.2 kg (192 lb 4 oz) 07/18/2021 8:22 AM CDT Height 175.3 cm (5' 9) 07/18/2021 8:22 AM CDT Body Mass Index 28.39 07/18/2021 8:22 AM CDT Plan of Treatment Health Maintenance Due Date Last Done Comments Hepatitis C screening for ag e 18-79 1971 Zoster (shingles) series for age 50+ (1 of 2) 2003 Medicare Wellness for age 65+ 2018 Pneumococcal series for age 65+ (1 of 1 - PCV) 2018 Depression screening for age 12+ 09/20/2020 09/21/2019, 09/19/2019, 09/15/2019, Additional history exists Tetanus booster 09/23/2020 09/23/2010, 09/23/2010 BMI (ht and wt on same day) for age 18+ 07/18/2022 07/18/2021, 04/03/2020, 05/20/2019, Additional history exists Colonoscopy through age 75 11/22/202211/22, 11/23/2019, 11/23/2019, Additional history exists COVID-19 vaccine series ( season) 2022 Influenza for age 65+ 11/29/2023 04/07/2017 , 04/09/2012, 01/08/2011 Lipids for age 45-75 09/20/2024 09/21/2019, 04/30/2018, 04/07/2017, Additional history exists Tdap Completed 09/23/2010 Procedures Procedure Name Priority Date/Time Associated Diagnosis Comments COLONOSCOPY SCREENING Routine 11/23/2019 8:39 AM CDT History of colon polyps LIPID PANEL W REFLEX MEASURED LDL Routine 09/21/2019 8:40 AM CDT Dyslipidemia from Last 3 Months or Most Recently Relevant to Health Maintenance Results * COLONOSCOPY SCREENING (11/23/2019 8:39 AM CDT) Dwayne Hunt MD GI PROCEDURE ORD * LIPID PANEL W REFLEX MEASURED LDL (09/21/2019 8:40 AM CDT) CHOLESTEROL,TOTAL 183 100 - 199 mg/dL 09/21/2019 3:48 PM CDT [facility] [employer] [facility] TRAL LAB[facility]AT[facility] TRIGLYCERIDES 103 <150 mg/dL 09/21/2019 3:48 PM CDT [facility] TR[facility] LAB[facility] HDL CHOLESTEROL 49 >40 mg/dL 0 3:48 PM CDT [facility] TR[facility] LAB[facility]ORY NON-HDL CHOLESTEROL 134 <145 mg/dl 09/21/2019 3:48 PM CDT [facility] TRAL LAB[facility]ORY CHOL/HDL RATIO 3.73 <4.50 09/21/2019 3:48 PM CDT [facility] TRAL LAB[facility]ORY LDL CHOLESTEROL 113 <=130 mg/dL 09/21/2019 3:48 PM CDT [facility] TRAL LABORATORY PROVIDER ORDERED STATUS FASTING 09/21/2019 3:48 PM CDT [facility] TR[facility] LAB[facility]ORY Blood BLOOD SPECIMEN / Unknown Venipuncture / Unknown 09/21/2019 8:40 AM CDT 09/21/2019 8:43 AM CDT Dwayne Hunt MD CHEMISTRY [facility] [address] [place] [address], [place] from Last 3 Months or Most Recently Relevant to Health Maintenance Advance Directives * Full Code (Latest Code Status on File) Date Activated Date Inactivated Comments 09/10/2017 4:05 PM 09/14/2017 5:03 PM * Full Code Date Activated Date Inactivated Comments 11/04/2010 8:56 AM 11/06/2010 9:23 PM Care Teams Principal Examiner Relationship Specialty Start Date End Date [place] [address] [employer] [place] [phone] PCP - General 08/12/21 Jose M Nash MD Consulting Physician Cardiovascular Disease 08/18/14
--- OUTSIDE RECORDS SUMMARY | 2023-10-03 16:55 | XMS_ITS | Encounter Summary ---
Author Name [facility] [place] Organization [place] Address [address] [place] [address] Care Team Providers Care Basketballs And Footballs Reverser Name Role Phone NABIL DICKSON Primary Care [...] ARE SUPPL EMENT Oct 29, 2019 PLAN [id number] [phone] RAEGAN CONTE PATIENT MEDICA [facility] (WNR) MEDICARE ADVANTAGE [facility] (WNR) Mar 30, 2021 [id number] RAEGAN CONTE PATIENT MEDICARE (WNR) MEDICARE (M) PART B Oct 29, 2019 PART B [id number] [phone] RAEGAN CONTE PATIENT MEDICARE (WNR) MEDICARE (M) PART A Mar 30, 2019 PART A [id number] [phone] RAEGAN CONTE PATIENT Selected Encounter This section includes the information on record at [place] for the Encounter. Date/Time Encounter Type Encounter Description Reason Provider Source Sep 16, 2023 03:36 PM Outpatient Encounter TELEPHONE TRIAGE TONE OWENS Encounter Template Text not used by [place] Plan of Treatment: Future Appointments (+ 6 months) and Future Tests (+/- 45 days) The Plan of Treatment section includes future care activities for the patient from [facility] [place] [facility] This section includes future appointments and future orders which are active, pending or scheduled. Future Appointments This section includes appointments that were scheduled to occur 6 months from the date of the Encounter, up to a maximum of 20 appointments. The data comes from all [facility]. Appointment Date/Time Appointment Type Appointme nt Facility Name Oct 14, 2023 02:15 PM AMBULATORY - SURGERY [facility] Oct 21, 2023 09:15 AM AMBULATORY - SURGERY [facility] Active, Pending, and Scheduled Orders This section includes a listing of several types of active, pending, and scheduled orders, including clinic medications orders, diagnostic test orders, procedure orders and consult orders; where the start date of the order is 45 days before the date of the Encounter or 45 days after the date of theEncounter. The data comes from all [facility]. Test Date/Time Test Type Test Details Facility Name Aug 31, 2023 05:28 PM Consult Order ORTHOPEDIC S OUTPT-HIP/KNEE Cons [employer] Vulcanizer's Choice [facility] Lab Results: +/- 30 days of the encounter This section includes the Chemistry and Hematology Lab Results on record with [place] for the patient. Radiology Reports and Pathology Reports are provided separately, in subsequent sections. Lab Results This section contains the Chemistry/Hematology Results that were resulted 30 days before or 30 daysafter the date of the Encounter. Date/Time Source Result Type Result - Unit Interpretation Reference Range Comment Aug 31, 2023 09:32 AM [facility] CBC Specimen Type: BLOOD No comment entered. Ordering Provider: ISIDRO DICKSON Report Released Date/Time: August 22, 2022 11:41 PM Reporting Lab: [facility] [id number] Performing Lab: [facility] [phone] WBC 6.18 10*3/uL 4.0-11.0 RBC 4.57 10*6/uL L 4.6-6.2 HGB 15.2 g/dL 13.5-17.9 HCT 43.3 41-54 MCV 94.7 fL 80-100 MCH 33.3 pg H 27-33 MCHC 35.1 g/dL 32.0-37.5 PLT 232 10*3/uL 150-400 MPV 10.3 fL 7.4-10.4 RDW 12.7 11.5-14.5 Aug 31, 2023 09:32 AM [facility] BASIC METABOLIC PANEL+MG Specimen Type: PLASMA No comment entered. Ordering Provider: ISIDRO DICKSON Report Released Date/Time: August 22, 2022 11:41 PM Reporting Lab: [facility] [id number] Performing Lab: [facility] [id number] CREATININE 1.0 mg/dL 0.7-1.2 UREA NITROGEN 15 mg/dL 8-26 GLUCOSE 104 mg/dL H 70-100 SODIUM 140 mmol/L 136-145 POTASSIUM 3.9 mmol/L 3.5-5.1 CHLORIDE 107 mmol/L 98-107 CO2 26 mmol/L 22-29 CALCIUM 9.0 mg/dL 8.4-10.2 MAGNESIUM 2.1 mg/dL 1.6-2.6 ANION GAP 7 mmol/L 5-15 .CREAT EGFR(CKD-EPI) 81 >60 Aug 31, 2023 09:32 AM [facility] AST/SGOT Specimen Type: PLASMA No comment entered. Ordering Provider: ISIDRO DICKSON Report Released Date/Time: August 22, 2022 11:41 PM Reporting Lab: [facility] [id number] Performing Lab: [facility] [phone] AST/SGOT 18 U/L <34 Aug 31, 2023 09:32 AM [facility] ALT/SGPT Specimen Type: PLASMA No comment entered. Ordering Provider: ISIDRO DICKSON Report Released Date/Time: August 22, 2022 11:41 PM Reporting Lab: [facility] [phone] Performing Lab: [facility] [phone] ALT/SGPT 25 U/L <55 Aug 31, 2023 09:32 AM [facility] LIPID PANEL,NON-FASTING Specimen Type: PLASMA No comment entered. Ordering Provider: ISIDRO DICKSON Report Released Date/Time: August 22, 2022 11:41 PM Reporting Lab: [facility] [phone] Performing Lab: [facility] [phone] CHOLESTEROL 166 mg/dL <199 .HDL 49 mg/dL >40 LDL CALCULATION 97 mg/dL <99 VLDL CALCULATION 20 mg/dL <29 NON HDL CHOLESTEROL 117 mg/dL <129 TRIG(NON FASTING) 100 mg/dL <149 Social History: Smoking Status (Most current) and Tobacco Use (All prior to encounter date) This section includes the most current, and the historical, smoking and tobacco- related health factors from the [place] facility where the Encounter took place. Current Smoking Status This section includes the most current smoking, or tobacco-related health factor, from the [place] facility where the Encounter took place. Date/Time Current Smoking Status Comment Joseline ity Aug 31, 2023 10:30 AM VA-TOBACCO USER EVERY DAY [facility] Tobacco Use History This section includes a history of the smoking, or tobacco-related health factors, that were collected on or before the date of the Encounter. The data comes from the [place] facility where the Encounter took place. Date/Time Smoking Status/Tobacco Use Comment F acility Aug 31, 2023 10:30 AM VA-TOBACCO USE ADVICE [facility] Aug 31, 2023 10:30 AM VA-TOBACCO USE CUFF KNITTER NO [facility] Aug 31, 2023 10:30 AM VA-TOBACCO USE MED NO [facility] Aug 31, 2023 10:30 AM VA-TOBACCO USE WI 30 MIN OF WAKE UP [facility] Aug 31, 2023 10:30 AM VA-TOBACCO USER EVERY DAY [facility] August 07, 2022 09:00 AM VA-TOBACCO FORMER USER [facility] August 07, 2022 09:00 AM VA-TOBACCO QUIT 1 TO < 5 YRS [facility] Jul 26, 2021 10:30 AM VA-TOBACCO FORMER USER [facility] Jul 26, 2021 10:30 AM VA-TOBACCO QUIT 1 TO < 5 YRS [facility] Apr 05, 2020 09:00 AM VA-TOBACCO DOESNT USE WI 30 MIN WAKEUP [facility] Apr 05, 2020 09:00 AM VA-TOBACCO USE 30 YEARS OR MORE [facility] Apr 05, 2020 09:00 AM VA-TOBACCO USE ADVICE [facility] Apr 05, 2020 09:00 AM VA-TOBACCO USE CUFF KNITTER NO [facility] Apr 05, 2020 09:00 AM VA-TOBACCO USE MED NO [facility] Apr 05, 2020 09:00 AM VA-TOBACCO USER SOME DAYS [facility] Radiology Reports: +/- 30 days of [...] the Encounter. The data comes from all [place] treatment facilities. Date/Time Radiology Report Provider Source Aug 31, 2023 12:00 PM KNEE LEFT 3 VIEWS: RAEGAN CONTE [facility] [id number] -1955 M Exm Date: AUG 31, 2023@12:00 Req Phys: NABIL DICKSON [place] Pat Loc: [facility] PACT SAPPHIRE 4E (Req'g Lo Img Loc: MAIN X-RAY Service: [place] [address] (Case [id number] COMPLETE) KNEE LEFT 3 VIEWS (RAD Detailed) CPT:49340 Proc Modifiers : STANDING LEFT Reason for Study: knee OA pain Clinical History: knee OA pain Responsible provider name and phone number to notify for critical findings if other than user placing the order and pager listed below: User placing orders pager: [phone] LAST CREATININE 1.0 (08/31/23) Report Status: Verified Date Reported: AUG 31, 2023 Date Verified: AUG 31, 2023 Rust Proofer E-Sig:/ES/ALEX BERTRAND MD, FACR, CCD Report: EXAMINATION: KNEE LEFT 3 VIEWS 08/31/2023 12:00 PM INDICATION: knee OA pain COMPARISON: None. FINDINGS: The bones appear intact. Moderate degenerative changes associated with joint space narrowing medial femoral tibial joint space. Mild to moderate degenerative changes patellofemoral joint space. A small joint effusion suggested. Impression: Degenerative changes. Primary Interpreting Staff: ALEX BERTRAND MD, FACR, STAFF RADIOLOGIST (Rust Proofer) /ALEX GANT [facility] Encounter Notes: All associated encounter notes This section contains the clinical notes associated to the Encounter. Date/Time Encounter Note(s) Provider Source Sep 16, 2023 03:36 PM RN PROGRESS NOTE: LOCAL TITLE: CCC: CLINICAL TRIAGE STANDARD TITLE: RN PROGRESS NOTE DATE OF NOTE: SEP 16, 2023@15:36:56 ENTRY DATE: SEP 16, 2023@15:36:56 AUTHOR: TONE OWENS COSIGNER: URGENCY: STATUS: COMPLETED CCC: CLINICAL TRIAGE Has ADDENDA Patient Demographics Patient Name: RAEGAN CONTE Patient Primary [address]: [address] [place] [id number] Patient Primary Patient : 1955 Patient Age: 68 Caller/Recipient Relation to Patient: Self Emergency Contact: RADHA CONTE Triage Summary Conducted triage/discussed symptoms Pain Score: 8 (Severe Pain) Chief Complaint: Ortho Consult Nurse's Recommendation / WHEN: Other Nurse's Other / WHEN: defer to PACT/Ortho Nurse's Recommendation / WHERE: Clinic[facility] Nursing Plan and Disposition Other course(s) of action Generated msg to PACT/Provider Nurse Summary Nurse Summary: VISN 23 NURSES NOTES PATIENT CONCERN/DURATION/ONSET: [place] called to schedule 's Orthopedics appt. States he continues to have 8/10 pain to L knee, knee is still swollen, red, warm to touch, tender. Reports these sx have been present for months. Denies any new or worsening sx of concern. WHAT HAS PATIENT TRIED TO TREAT THE SYMPTOMS: Epson salt, lidocaine patches and ointment, Tylenol, Aleve: only temporary relief. HISTORY/PREVIOUS TREATMENT: 08/31/23 saw PCP, ortho consult placed for knee. WHAT IS PATIENT GOAL FOR THE CALL: To schedule Ortho appt. DID YOU CONSIDER USING [facility] LIP (TELE or VVC): No, specialty required. HOME HEALTH SCHEDULER DISPOSITION: Triage nurse recommendation is defer to PACT/Ortho for management because of persistent pain. Advised caller information documented and a message would be sent to appropriate teams for follow-up. [place] will be expecting a call back from PACT/Ortho. [place]'s SO agrees with plan of care and verbalizes via teach-back. Best contact for is (Verified): This note was created by a [address] licensed and certified midwife. Please do not alert this nurse by adding as a signer for future communications. Alerts are not monitored by this user, if needed please email . [place] directed on home cares as applicable and directions when to call back per nurses notes section of document. (Caller could accurately summarize the agreed upon plan of care as discussed in the education log portion of this note.) Per policy, automated recommendations for an ''appointment'' indicates an interaction (virtual or in-person) with the care team. Clinical Contact Center Codes Clinic/Location: [address] PHONE [facility] BOBY /felix/ MARYAM POWERN, RN VISN23 [place] [facility] RN Signed: 09/16/2023 15:36 Receipt Acknowledged By: 09/17/2023 10:44 /es/ RENE KHALIL RN REGISTERED NURSE for HERMILA MASSEY 09/17/2023 09:28 /es/ HERMILA PHAM RN REGISTERED NURSE 09/17/2023 ADDENDUM STATUS: COMPLETED Bricklayer Helper attempted to call patient couple of times today. Bricklayer Helper left HIPAA complaint VM with 2F nurse triage line phone number. Awaiting a call back. /es/ HERMILA PHAM, BOBY REGISTERED NURSE Signed: 09/17/2023 09:28 TONE OWENS [facility]
--- OUTSIDE RECORDS SUMMARY | 2023-10-03 16:55 | XMS_ITS | Encounter Summary ---
Author Name [facility] [place] Organization [place] Address [address] [place] [address] Care Team Providers Care Visual Merchandising Director Name Role Phone NABIL URIBE Primary Care Provider Unavailabl e Insurance [...] ARE SUPPL EMENT Oct 29, 2019 PLAN [id number] [phone] KAI CONTE PATIENT MEDICA [facility] (WNR) MEDICARE ADVANTAGE [facility] (WNR) Mar 30, 2021 [id number] KAI CONTE PATIENT MEDICARE (WNR) MEDICARE (M) PART B Oct 29, 2019 PART B [id number] KAI CONTE PATIENT MEDICARE (WNR) MEDICARE (M) PART A Mar 30, 2019 PART A [id number] KAI CONTE PATIENT Selected Encounter This section includes the information on record at [place] for the Encounter. Date/Time Encounter Type Encounter Description Reason Provider Source Sep 10, 2023 08:02 AM Outpatient Encounter PRIMARY CARE/MEDICINE YULI MATTHEWS Encounter Template Text not used by [place] Plan of Treatment: Future Appointments (+ 6 months) and Future Tests (+/- 45 days) The Plan of Treatment section includes future care activities for the patient from all [place] [facility]. This section includes future appointments and future orders which are active, pending or scheduled. Future Appointments This section includes appointments that were scheduled to occur 6 months from the date of the Encounter, up to a maximum of 20 appointments. The data comes from all [facility]. Appointment Date/Time Appointment Type Appointme nt Facility Name Oct 14, 2023 02:15 PM AMBULATORY - SURGERY [facility] Oct 21, 2023 09:15 AM AMBULATORY - SURGERY [facility] Active, Pending, and Scheduled Orders This section includes a listing of several types of active, pending, and scheduled orders, including clinic medications orders, diagnostic test orders, procedure orders and consult orders; where the start date of the order is 45 days before the date of the Encounter or 45 days after the date of theEncounter. The data comes from all [facility]. Test Date/Time Test Type Test Details Facility Name Aug 31, 2023 05:28 PM Consult Order ORTHOPEDIC S OUTPT-HIP/KNEE Cons Media [facility] [facility] Lab Results: +/- 30 days of the encounter This section includes the Chemistry and Hematology Lab Results on record with [place] for the patient. Radiology Reports and Pathology Reports are provided separately, in subsequent sections. Lab Results This section contains the Chemistry/Hematology Results that were resulted 30 days before or 30 daysafter the date of the Encounter. Date/Time Source Result Type Result - Unit Interpretation Reference Range Comment Aug 31, 2023 09:32 AM [facility] CBC Specimen Type: BLOOD No comment entered. Ordering Provider: ISIDRO URIBE Report Released Date/Time: August 22, 2022 11:41 PM Reporting Lab: [facility] [id number] Performing Lab: [facility] [address] WBC 6.18 10*3/uL 4.0-11.0 RBC 4.57 10*6/uL L 4.6-6.2 HGB 15.2 g/dL 13.5-17.9 HCT 43.3 41-54 MCV 94.7 fL 80-100 MCH 33.3 pg H 27-33 MCHC 35.1 g/dL 32.0-37.5 PLT 232 10*3/uL 150-400 MPV 10.3 fL 7.4-10.4 RDW 12.7 11.5-14.5 Aug 31, 2023 09:32 AM [facility] BASIC METABOLIC PANEL+MG Specimen Type: PLASMA No comment entered. Ordering Provider: ISIDRO URIBE Report Released Date/Time: August 22, 2022 11:41 PM Reporting Lab: [facility] [phone] Performing Lab: [facility] [address] CREATININE 1.0 mg/dL 0.7-1.2 UREA NITROGEN 15 mg/dL 8-26 GLUCOSE 104 mg/dL H 70-100 SODIUM 140 mmol/L 136-145 POTASSIUM 3.9 mmol/L 3.5-5.1 CHLORIDE 107 mmol/L 98-107 CO2 26 mmol/L 22-29 CALCIUM 9.0 mg/dL 8.4-10.2 MAGNESIUM 2.1 mg/dL 1.6-2.6 ANION GAP 7 mmol/L 5-15 .CREAT EGFR(CKD-EPI) 81 >60 Aug 31, 2023 09:32 AM [facility] AST/SGOT Specimen Type: PLASMA No comment entered. Ordering Provider: ISIDRO URIBE Report Released Date/Time: August 22, 2022 11:41 PM Reporting Lab: [facility] [phone] Performing Lab: [facility] [address] AST/SGOT 18 U/L <34 Aug 31, 2023 09:32 AM [facility] ALT/SGPT Specimen Type: PLASMA No comment entered. Ordering Provider: ISIDRO URIBE Report Released Date/Time: August 22, 2022 11:41 PM Reporting Lab: [facility] [id number] Performing Lab: [facility] [address] ALT/SGPT 25 U/L <55 Aug 31, 2023 09:32 AM [facility] LIPID PANEL,NON-FASTING Specimen Type: PLASMA No comment entered. Ordering Provider: ISIDRO URIBE Report Released Date/Time: August 22, 2022 11:41 PM Reporting Lab: [facility] [address] Performing Lab: [facility] [address] CHOLESTEROL 166 mg/dL <199 .HDL 49 mg/dL >40 LDL CALCULATION 97 mg/dL <99 VLDL CALCULATION 20 mg/dL <29 NON HDL CHOLESTEROL 117 mg/dL <129 TRIG(NON FASTING) 100 mg/dL <149 Social History: Smoking Status (Most current) and Tobacco Use (All prior to encounter date) This section includes the most current, and the historical, smoking and tobacco- related health factors from the [place] facility where the Encounter took place. Current Smoking Status This section includes the most current smoking, or tobacco-related health factor, from the [place] facility where the Encounter took place. Date/Time Current Smoking Status Comment Facil ity Aug 31, 2023 10:30 AM VA-TOBACCO USER EVERY DAY [facility] Tobacco Use History This section includes a history of the smoking, or tobacco-related health factors, that were collected on or before the date of the Encounter. The data comes from the [place] facility where the Encounter took place. 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 [facility] Aug 31, 2023 10:30 AM VA-TOBACCO USE MED NO [facility] Aug 31, 2023 10:30 AM VA-TOBACCO USE WI 30 MIN OF WAKE UP [facility] Aug 31, 2023 10:30 AM VA-TOBACCO USER EVERY DAY [facility] August 07, 2022 09:00 AM VA-TOBACCO FORMER USER [facility] August 07, 2022 09:00 AM VA-TOBACCO QUIT 1 TO < 5 YRS [facility] Jul 26, 2021 10:30 AM VA-TOBACCO FORMER USER [facility] Jul 26, 2021 10:30 AM VA-TOBACCO QUIT 1 TO < 5 YRS [facility] Apr 05, 2020 09:00 AM VA-TOBACCO DOESNT USE WI 30 MIN WAKEUP [facility] Apr 05, 2020 09:00 AM VA-TOBACCO USE 30 YEARS OR MORE [facility] Apr 05, 2020 09:00 AM VA-TOBACCO USE ADVICE [facility] Apr 05, 2020 09:00 AM 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 The data comes from all [place] treatment facilities. Date/Time Radiology Report Provider Source Aug 31, 2023 12:00 PM KNEE LEFT 3 VIEWS: KAI CONTE [facility] [id number] -1955 M Exm Date: AUG 31, 2023@12:00 Req Phys: JOSEISAIASNABILGEOFF HILL Pat Loc: [facility] PACT SAPPHIRE 4E (Req'g Lo Img Loc: MAIN X-RAY Service: [place] [address] (Case [id number] COMPLETE) KNEE LEFT 3 VIEWS (RAD Detailed) CPT:47274 Proc Modifiers : STANDING LEFT Reason for Study: knee OA pain Clinical History: knee OA pain Responsible provider name and phone number to notify for critical findings if other than user placing the order and pager listed below: User placing orders pager: [phone] LAST CREATININE 1.0 (08/31/23) Report Status: Verified Date Reported: AUG 31, 2023 Date Verified: AUG 31, 2023 Book Sewer E-Sig:/ES/ALEX BERTRAND MD, FACR, CCD Report: EXAMINATION: KNEE LEFT 3 VIEWS 08/31/2023 12:00 PM INDICATION: knee OA pain COMPARISON: None. FINDINGS: The bones appear intact. Moderate degenerative changes associated with joint space narrowing medial femoral tibial joint space. Mild to moderate degenerative changes patellofemoral joint space. A small joint effusion suggested. Impression: Degenerative changes. Primary Interpreting Staff: ALEX BERTRAND MD, FACR, STAFF RADIOLOGIST (Book Sewer) /ALEX GANT [facility] Encounter Notes: All associated encounter notes This section contains the clinical notes associated to the Encounter. Date/Time Encounter Note(s) Provider Source Sep 10, 2023 08:02 AM PRIMARY CARE SECUR E MESSAGING: LOCAL TITLE: PRIMARY CARE SECURE MESSAGING STANDARD TITLE: PRIMARY CARE SECURE MESSAGING DATE OF NOTE: SEP 10, 2023@08:02 ENTRY DATE: SEP 10, 2023@08:03 AUTHOR: YULI MATTHEWS EXP COSIGNER: URGENCY: STATUS: COMPLETED ------Original Message ----- Sent: 09/08/2023 01:54 PM ET From: KAI CONTE To: [facility] Primary CareJojo H. ([place]) Subject: Medication:acyclovir refill, glucose level high, urology appo Kai Quintanilla ------Original Message ----- Sent: 09/09/2023 09:12 AM ET From: YULI MATTHEWS To: KAI CONTE Subject: Medication:acyclovir refill, glucose level high, urology appo Huber, I've flagged the Acylovir for renewal/refill. Once Dr. Uribe signs Pharmacy will review and mail out. I need a little more information on your BS numbers as well as the need for Urology Appointment. Thanks. Yuli Matthews PICK AND SHOVEL WORKER CCRN [employer] ------Original Message ----- Sent: 09/09/2023 02:04 PM ET From: KAI CONTE To: [facility] Subject: Medication:acyclovir refill, glucose level high, urology appo the glucose level states high, also urology follow up from mole removal 2 years ago having pain where surgery was done, also orthopedic visit for left knee pain possible injections, also is it possible to increase the quantity of the acyclovir? thank you Kai Quintanilla ------Original Message ----- Sent: 09/10/2023 09:02 AM ET From: YULI MATTHEWS To: KAI CONTE Subject: Medication:acyclovir refill, glucose level high, urology appo Good morning, Regarding the (high blood glucose) if you referring to your recent lab it is normal. This lab was non-fasting and 104 would be a typical reading nothing to be concerned about. Urology was tagged by Dr. Uribe regarding your concern. The Consult placed in 2021 is still good. You can contact Urology for an appointment by [phone]. Their RN phone number for patient's is: [phone]. Regarding your Acyclovir are you taking this daily for prevention or as needed for flare-ups. Dr. Uribe would like to switch to Valcyclovir which is fewer pills to take. Thanks for your response. Yuli Matthews RN BSN CCRN [employer] /es/ YULI MATTHEWS RN BSN Signed: 09/10/2023 08:03 YULI MATTHEWS [facility]
--- OUTSIDE RECORDS SUMMARY | 2023-10-03 16:55 | XMS_ITS | Clinical Summary ---
[facility] Address [address] [place] [address] Care Team Providers Care Electrolog Operator Name Role Phone Dwayne Hunt MD Primary Care Provider [phone] Source Comments You are receiving this document as you are listed as the primary care provider,follow-up provider, or the patient has been referred to you for consultation.This is in compliance with the Medicare and[facility] EHR Incentive Program,which states Providers who transition their patient to another setting of careor provider of care or refers their patient to another provider of care shouldprovide summary care record for each transition of care or referral. Particle Allergies Active Allergy Reactions Criticality Noted Date Comments Amoxicillin Nausea And Vomiting 08/09/2014 Hydrocodone-Acetaminophen Itching Low 08/30/2014 Morphine Nausea And Vomiting 08/09/2014 Shellfish-Derived Products Anaphylaxis High 08/10/19 15 Medications Medication Sig Dispensed Refills Start Date End Date Status VITAMIN E OR Take 400 Units by mouth daily at 8am. 08/30/2014 Active tamsulosin (FLOMAX) 0.4 MG CAPS capsule Take 0.4 mg by mouth daily (every 24 hours). after meal for urinary symptoms 08/30/2014 Active sildenafil (VIAGRA) 50 MG tablet Take 50 mg by mouth as needed for Other. 08/30/2014 Active pantoprazole (PROTONIX) 40 MG tablet Take 40 mg by mouth daily (every 24 hours). 08/30/2014 Active latanoprost (XALATAN) 0.005 % eye drop solution Place 1 drop into both eyes nightly. 08/30/2014 Active acyclovir (ZOVIRAX) 400 MG tablet Take 400 mg by mouth 2 times daily. 08/30/2014 Active Echinacea 500 MG Take by mouth daily (every 24 hours). 08/30/2014 Active Multiple Vitamins-Minerals (CENTRUM SILVER OR) Take by mouth. 08/30/2014 A ctive lisinopril (ZESTRIL) 10 MG tablet Take 10 mg by mouth daily. Active metoprolol tartrate (LOPRESSOR) 25 MG tablet Take 25 mg by mouth two times a day. Active HYDROmorphone (DILAUDID) 2 MG tablet Take 2 Tablets by mouth every 4 hours as needed for Pain. 40 Tablet 07/24/2020 Active hydrOXYzine pamoate (VISTARIL) 25 MG capsule Take 1 Capsule by mouth three times a day as needed. 30 Capsule 07/24/2020 Active HYDROmorphone (DILAUDID) 2 MG tabletIndications:Po st-op pain Take 2 Tablets by mouth every 3 hours as needed for Pain. 40 Tablet 08/01/2020 Active hydrOXYzine pamoate (VISTARIL) 25 MG capsule Take 1 Capsule by mouth three times a day as needed. 20 Capsule 08/01/2020 Active Active Problems Problem Noted Date Diagnosed Date Traumatic complete tear of right rotator cuff Overview: Added automatically from request for surgery [id number] S/P rotator cuff repair 06/06/2015 Overview: Status post left shoulder arthroscopic rotator cuff repair, labral debridement, and open subpectoral biceps tenodesis Complete tear of left rotator cuff 03/09/2015 Encounters for administrative purpose 03/09/2015 Rotator cuff (capsule) sprain 07/25/2014 Family History Medical History Relation Name Comments Cancer Father Cancer Mother Relation Name Status Comments Father Mother Social History Tobacco Use Types Packs/Day Years Used Date Smoking Tobacco: Light Smoker Cigarettes Smokeless Tobacco: Never Alcohol Use Standard Drinks/Week Comments Yes 0 (1 standard drink = 0.6 oz pur e alcohol) 5 drinks/week Sex and Gender Information Value Date Recorded Sex Assigned at Not on file Gender Identity Not on file Sexual Orientation Not on file Last Filed Vital Signs Vital Sign Reading Time Taken Comments Blood Pressure 124/77 07/24/2020 8:15 PM CDT Pulse 64 07/24/2020 8:15 PM CDT Temperature 36.5 ??C (97.7 ??F) 07/24/2020 5:37 PM CD T Respiratory Rate 12 07/24/2020 8:15 PM CDT Oxygen Saturation 94% 07/24/2020 8:15 PM CDT Inhaled Oxygen Concentration - - Weight 89.8 kg (198 lb) 07/24/2020 2:10 PM CDT Height 175.3 cm (5' 9) 07/24/2020 2:10 PM CDT Body Mass Index 29.24 07/24/2020 2:10 PM CDT Plan of Treatment Health Maintenance Due Date Last Done Comments Colon Cancer Screening Plan Due 1955 Hep C Screening (Preventive Services) 1955 Medicare Annual Wellness Visit 1955 Pneumococcal 65+ Yrs (1 - PCV) 1959 Cholesterol 1988 Zoster/Shingles (1 of 2) 2003 DTaP/Tdap/Td (2 - Tdap) 09/23/2020 09/23/2010 COVID-19 Vaccine (1 - 2022-2 4 season) 2022 Influenza (#1) 2023 04/07/2017, 04/09/2012, 01/08/2011 HepA Aged Out No longer eligi ble based on patient's age to complete this topic HepB Aged Out No longer eligi ble based on patient's age to complete this topic Hib Aged Out No longer eligi ble based on patient's age to complete this topic IPV (Polio) Aged Out No longer eligi ble based on patient's age to complete this topic MCV4 Aged Out No longer eligi ble based on patient's age to complete this topic Medical Devices Implanted Type Area Patient Service Specialist Device Identifier Shelf Expiration Date Model / Serial / Lot Sut Medora Corkscrew Ft 5.5mm - [id number] Implanted:Qty: 2 on 07/24/2020 by Edward Bray MD at [facility] DEVICE Right: SHOULDER [employer] 01/27/2022 [id number] / / [id number] Medora Swivel Lk 5.5x19.1 - [id number] Implanted:Qty: 1 on 07/24/2020 by Edward rBay MD at [facility] DEVICE Right: SHOULDER [employer] 08/28/2023 [id number] / / [id number] Advance Directives * Full Code (Latest Code Status on File) Date Activated Date Inactivated Comments 07/24/2020 5:28 PM 07/25/2020 12:57 AM * Full Code Date Activated Date Inactivated Comments 08/31/2014 11:55 AM 08/31/2014 5:42 PM Care Teams Electrolog Operator Relationship Specialty Start Date End Date Dwayne Hunt MD [address] [place] [address] PCP - General 08/31/14
--- OUTSIDE RECORDS SUMMARY | 2023-10-03 16:55 | XMS_ITS | Continuity of Care Document ---
Author Organization [facility] Address [address] [place] [address] Phone Care Team Providers Care Cost Estimating Manager Name Role Phone Lorenzo Jordan MD Unavailable Unavailable Allergies, Adverse Reactions, Alerts Substance Reaction Status Criticality shellfish derived Active No Informa tion morphine Active No Information Medications Medication Instructions Dosage Effective Dates (start - stop) Status Comments No Drug Therapy Prescribed Procedures Procedure Date Office/Outpatient Visit,Est, Mod 2018 Special Serv Nec, Procedor Report Office/Outpatient Visit,Est, Mod 2017 Special Serv Nec, Procedor Report Postop Followup Visit X-Ray Exam Lower Spine 2-3 Views 2017 Low Back Disk Surgery/Decompress 2017 Advance Directives Directive Yes / No Effective Date File Name No Information Encounters Encounter Description Practice Location Reason(s) For Visit Diagnoses Date Provider Providers Copied on Encounter [facility], [address], [place], [place], [id number] , [place] tel: [phone] [facility] No Information 0 Julian Ventura. [facility] [place], [address] [place] [address], [address], [place], [place], [id number] , [place]. tel: [phone] Office/Outpat ient Visit,Est, Mod [facility], [address], [facility] [place] [id number] , [place] tel: [phone] [facility] Other intervertebral disc displacement, lumbar region 9 Fredrick Sullivna. [facility] [place], [address], [place], [place], [id number] , [place]. tel:[phone] Referring Provider: Lorenzo Jordan, [facility] [address], [address], [place], [address] . tel:[phone] Office/Outpat ient Visit,Est, Mod [facility], [address], [place], [place], [id number] , [place] tel: [phone] [facility] [place] Other intervertebral disc displacement, lumbar region Sep- 8 Fredrick Sullivan. [facility], [address], [place], [place], [id number] , [place]. tel: [phone] Referring Provider: Lorenzo Jordan, [facility] [address], [address], [place], [address] . tel:[phone] [facility], [address], [place], [place], [id number] , [place] tel: [phone] [facility] [place] Other intervertebral disc displacement, lumbar regionEncounter for other specified surgical aftercare 8 Julian Ventura. [facility], [address], [address], [place], [place], [id number] , [place]. tel: [phone] Referring Provider: Lorenzo Jordan, [facility] [address], [address], [place], [address] . tel:[phone] [facility], [address], [place], [place], [id number] , [place] [phone] [facility] No Information 8 Julian Ventura. [facility], [address], [address], [place], [place], [address] , [place]. tel:[phone] Referring Provider: Lorenzo Jordan, [facility] [address], [address], [place], [address] . tel:[phone] Family History Family Member Type Diagnosis Age At Onset No Information Payers Payer name Insurance type Covered democrat ID Jazmín hyman(s) [employer] [id number] Social History Type Description Quantity Date Captured Comments Sex Male Smoking Status No Information Chief Complaint And Reason For Visit No Information Reason For Referral Reason For Referral No Information History Of Present Illness Encounter Date Complaint History Of Prese nt Illness No Information Functional Status Date Functional Assessmen t No Information Medications Administered Medication Instructions Dosage Effective Dates (start - stop) Status Comments No Drug Therapy Prescribed Instructions Date Instruction Additional Infor mation No Information Assessments Type Assessment Date No Information Patient Care Teams Name Effective Dates (start - stop) Status Members No Information
--- OUTSIDE RECORDS SUMMARY | 2023-10-03 16:55 | XMS_ITS | Encounter Summary ---
Author Organization [facility] Address [address] [place] [address] Care Team Providers Care Loading Dock Helper Name Role Phone Dwayne Hunt MD Primary Care Provider [phone] Encounter Details Date Type Department Care Team (Late st Contact Info) Description 07/31/2014 Orders Only [facility] [address] [place] [address] Edward Bray MD [address] [place] [address] Social History Tobacco Use Types Packs/Day Years Used Date Smoking Tobacco: Never Assessed Sex and Gender Information Value Date Recorded Sex Assigned at Not on file Gender Identity Not on file Sexual Orientation Not on file documented as of this encounter Plan of Treatment Not on file documented as of this encounter Visit Diagnoses Not on filedocumented in this encounter Care Teams Loading Dock Helper Relationship Specialty Start Date End Date Dwayne Hunt MD [address] [place] [address] PCP - General 08/31/14 documented as of this encounter
--- NOTE | 2023-10-03 17:24 | ED_ITS ---
HPI - Wound/Laceration General Chief Complaint: Laceration/Wound Stated Complaint: laceration on left hand; bloody Time Seen by Provider: 10/03/23 15:40 Source: patient History of Present Illness HPI narrative: Patient is a 68-year-old male presenting for concern of foreign body in his left hand. States he had something with a hammer while working on a deck and felt a piece of steel implant itself into his hand in between his index finger and thumb. Initially there was quite a bit of bleeding he says it was gushing blood the but the bleeding has since stopped. Has some mild pain in the area. No other concerns noted. Related Data Home Medications ?Medication ?Instructions ?Recorded ?Confirmed chlorhexidine gluconate 0.12 % PO 10/03/23 mouthwash Previous Rx's ?Medication ?Instructions ?Recorded clindamycin HCl 150 mg capsule 450 mg (3 x 150 mg) PO TID 5 days 10/03/23 #45 caps Allergies Allergy/AdvReac Type Severity Reaction Status Date / Time amoxicillin Allergy Unknown Vomiting Verified 10/03/23 15:45 iodine Allergy Unknown Anaphylaxis Verified 10/03/23 15:45 morphine Allergy Unknown Vomiting Verified 10/03/23 15:45 shellfish derived Allergy Unknown Anaphylaxis Verified 10/03/23 15:45 Review of Systems Narrative: Pertinent systems reviewed and were negative unless stated in HPI PFSH PFSH Social History Smoking Status: Never smoker How often do you have a drink containing alcohol: never AUDIT-C Alcohol total score: 0 Non-prescribed substance use: denies use Exam Narrative: Exam Narrative: Const: Well-nourished, Well-developed, in mild distress Eyes: PERRL, no conjunctival injection, and symmetrical lids HENT: Atraumatic external nose and ears. Moist mucous membranes. MSK:Extremities w/o deformity, Normal Active ROM, mild swelling noted between the index and thumb and left hand Skin: Warm, Dry. No rashes or lesions. 3 mm laceration noted between thumb and index finger in the left hand webspace Neuro: Normal Muscle tone, No focal neurological deficits. Psych: Awake, Alert, & Oriented x3. Appropriate mood and affect. Const: Vital Signs, click to edit/add: Vital Signs - 24 hr 10/03/23 15:46 10/03/23 17:40 Temperature 98.3 F 98.3 F Pulse Rate [Pulse Oximeter] 87 87 Respiratory Rate 14 14 Blood Pressure [Ri ght Upper Arm] 102/79 102/79 Pulse Oximetry 95 Oxygen Delivery Me thod Room Air Course Vital Signs Vital signs: Initial Vital Signs Temperature 98.3 F 10/03/23 15:46 Temperature Source Temporal Artery Scan 10/03/23 15:46 Pulse Rate 87 10/03/23 15:46 Pulse Rhythm Regular 10/03/23 15:46 Respiratory Rate 14 10/03/23 15:46 Blood Pressure 102/79 10/03/23 15:46 Blood Pressure Mean 86 10/03/23 15:46 Blood Pressure Position Sitting 10/03/23 15:46 Pulse Oximetry 95 10/03/23 15:46 Oxygen Delivery Method Room Air 10/03/23 15:46 Vital Signs Temperature 98.3 F 10/03/23 15:46 Pulse Rate 87 10/03/23 15:46 Respiratory Rate 14 10/03/23 15:46 Blood Pressure 102/79 10/03/23 15:46 Pulse Oximetry 95 10/03/23 15:46 Oxygen Delivery Method Room Air 10/03/23 15:46 Temperature 98.3 F 10/03/23 17:40 Pulse Rate 87 10/03/23 17:40 Respiratory Rate 14 10/03/23 17:40 Blood Pressure 102/79 10/03/23 17:40 Pulse Oximetry 95 10/03/23 15:46 Oxygen Delivery Method Room Air 10/03/23 15:46 MDM - Wound/Laceration MDM Narrative Medical decision making narrative: Patient is a 68-year-old male concern for foreign body. Bleeding has since stopped and area was cleaned thoroughly. X-ray was done showing a 4 mm foreign body and possible 5 mm foreign body but unsure if it was an overlying object. Considering how small the area is I do not feel comfortable trying to remove the foreign body as I unlikely to cause more harm. I did speak to Orthopedics they do recommend antibiotics and follow-up with them next week. Patient is agreeable to this plan. Since he was allergic to amoxicillin and his vomiting I will given clindamycin instead of Keflex. I gave him information follow-up with orthopedics if he will be discharged. Imaging Data Left hand x-ray: Attestation: I have reviewed the pertinent imaging results. Radiologist's impression: There is a 4 mm metallic body in the palmar soft tissues of the thenar eminence. A linear 5 mm foreign body over the dorsal soft tissues of the hand may be external to the patient. Clinical correlation is recommended. Dictated by Kayce Malave MD @ 10/03/2023 4:56:25 PM Discharge Plan Discharge Clinical Impression: Foreign body hand Qualifiers: Encounter type: initial encounter Laterality: left Qualified Code(s): S60.552A - Superficial foreign body of left hand, initial encounter Patient Disposition: Home, Self-Care Condition: Stable Instructions: Soft Tissue Foreign Body (ED) Additional Instructions: Follow-up with [facility] on Thursday. There are phone number is [phone]. Informed them that urine emergency department today and have a foreign body in your left hand and was told to follow-up with orthopedics. Take the antibiotics as directed. Return to emergency department for new or worsening symptoms Prescriptions: New clindamycin HCl 150 mg capsule 450 mg PO TID 5 Days Qty: 45 0RF No Action chlorhexidine gluconate 0.12 % mouthwash PO Follow Up/Referrals: Dwayne Hunt MD [Primary Care Provider] - Stand Alone Forms: [email or web address] Info Instructions
[2023-10-03 17:40] VITALS: BP 102/79; PULSE 87; RESP 14; TEMP 36.8
== END 2023-10-03 17:40 | disposition home or self-care (01) ==
PROVIDERS: Emergency Provider Student in an Organized Health Care Education/Training Program; PCP Family Medicine
DX: S60.552A Superficial foreign body of left hand, initial encounter (principal)
CPT/HCPCS: 73130; 99282; 99283; 99284